=== PATIENT | male | born 1985 | race Caucasian/White ===

== ENCOUNTER 2019-11-13 10:09 | Emergency (ER) | payer SELFPAY ==
[2019-11-13 10:16] VITALS: BP 125/80
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
== END 2019-11-13 11:37 | disposition home or self-care (01) ==
LOC: ER 10:09
DX: L02.416 Cutaneous abscess of left lower limb (principal); M79.605 Pain in left leg; F17.200 Nicotine dependence, unspecified, uncomplicated
CPT/HCPCS: 99283

== ENCOUNTER 2020-02-17 03:21 | Inpatient (IN) | payer SELFPAY ==
[~2020-02-17 03:21] MED LIST: NALOXONE HCL INJ/PF 0.4 MG/1 ML SDV ONE
[2020-02-17] MEDS: NALOXONE HCL INJ/PF 0.4 MG/1 ML SDV IV ONE ×4 (03:22→05:56)
[2020-02-17] MEDS ORDERED: NALOXONE HCL INJ 2 MG/2 ML DISP.SYRIN ONE (03:23)
[2020-02-17] MEDS ORDERED: LORAZEPAM INJ 2 MG/1 ML VIAL IV ONE ×2 (03:35→14:36)
[2020-02-17] MEDS ORDERED: ETOMIDATE INJ/PF 20 MG/10 ML SDV IV ONE ×2 (03:39→10:10)
[2020-02-17] MEDS ORDERED: VECURONIUM BROMIDE INJ 10 MG VIAL IV ONE ×5 (03:41→10:10)
[2020-02-17] MEDS ORDERED: SUCCINYLCHOLINE CHLORIDE INJ 200 MG/10 ML VIAL IV ONE (03:41)
--- NOTE | 2020-02-17 04:00 | ER Document Report ---
ED General - General Chief Complaint: Possible Overdose Stated Complaint: POSSIBLE OVERDOSE - HPI Onset: Other - Unknown Onset/Duration: Constant Quality of pain: Other Context: This is a 34-year-old male presenting from the front lobby on a stretcher for evaluation of altered mental status. ED staff states that the patient's friends brought him up to the front door the ER and had him packed in several bags of ice. Details as to the exact sequence of events is unclear at this point but the patient was reportedly found down by his friends in front of a convenience store and a brought him to the ER. The patient has presenting with a initial GCS of 3. Patient's eyes are closed, he is nonverbal and does not localize to pain. The patient's breathing has extremely slow, basically agonal at times. Patient's pupils are pinpoint bilaterally initial oxygen saturation was noted to get as low as 42%. And patient had minimal response to 4 mg of Narcan. Pt's initial temperature according to temalcides Col[place] was 90.4 Associated symptoms: Other - None none Exacerbated by: Other - Unknown Relieved by: Other - None - Related Data Allergies/Adverse Reactions: No Known Allergies Allergy (Verified 11/13/19 11:16) Past Medical History - General Information source: Friend - The patient's reported friends who brought him in initially mentioned nothing about any prior medical history Cannot obtain history due to: Altered mental status - Social History Smoking Status: Unknown if Ever Smoked Frequency of alcohol use: Unknown Drug Abuse: Other - None none Family History: Other - Unknown at this time Past Surgical History: Reports: Other - Neck surgery Review of Systems - Review of Systems -: Yes ROS unobtainable due to patient's medical condition Physical Exam - Vital signs Vitals: Resp Pulse Ox 14 41 L 02/17/20 03:20 02/17/20 03:20 - Notes Notes: CONSTITUTIONAL [Vital signs reviewed, patient has a GCS of 3, has erratic breathing and is unresponsive to painful stimuli HEAD [Atraumatic, Normocephalic.] EYES Pupils are pinpoint bilaterally sclera are normal, Conjunctiva are normal.] ENT [External ears normal to inspection, Nose examination normal, lips appear slightly cyanotic] NECK No step-off or crepitus noted on exam of posterior neck no jugular venous distention, No meningeal signs, ] RESPIRATORY CHEST [Chest is nontender, breathing is slow and irregular, scattered rhonchi audible, patient appears to be in severe respiratory distress CARDIOVASCULAR [RRR, No murmurs, Normal S1 S2, No rub, No gallop.] ABDOMEN [Abdomen is nontender, No pulsatile masses, No other masses, Bowel sounds quiet, No distension, No peritoneal signs, No hernias.] UPPER EXTREMITY No deformities or cyanosis noted LOWER EXTREMITY No deformities or cyanosis noted NEURO GCS of 3. Patient's eyes are closed. Patient is nonverbal and does not respond to painful stimuli SKIN Patient has a overall great pallor in terms of the appearance of his skin. Patient does have a oval appearing area of macular erythema surrounding the region of the umbilicus. PSYCHIATRIC [Unable to assess patient from a psychiatric standpoint. ] Course - Re-evaluation Re-evalutation: 02/17/20 05:32 Patient is currently sedated. He continues to have a tachycardic rate that varies from the low 100s to the 160s. Patient's blood pressure is 153/106. O2 sats are 99% - Vital Signs Vital signs: Temp Pulse Resp BP Pulse Ox 93.6 F L 9 L 146/91 H 96 02/17/20 05:41 02/17/20 05:01 02/17/20 05:41 02/17/20 05:20 - Laboratory Result Diagrams: 02/17/20 03:40 02/17/20 03:40 Laboratory results interpreted by me: 02/17/20 02/17/20 02/17/20 03:29 03:40 03:40 WBC 13.1 H Baso % (Auto) 2.5 H Absolute Basos (auto) 0.3 H Potassium 3.4 L Creatinine 1.26 H Glucose 364 H POC Glucose 402 H* Creatine Kinase 52 L Urine Protein Urine Glucose (UA) Salicylates < 1.0 L Acetaminophen < 10 L 02/17/20 03:40 WBC Baso % (Auto) Absolute Basos (auto) Potassium Creatinine Glucose POC Glucose Creatine Kinase Urine Protein 30 H Urine Glucose (UA) 150 H Salicylates Acetaminophen - Diagnostic Test Radiology reviewed: Reports reviewed - EKG Interpretation by Me Additional EKG results interpreted by me: 02/17/20 05:21 EKG obtained on 02/17/2020 at 0434 hrs. was interpreted by this MD. Findings tachycardia with some irregularity that is suggestive of A. fib. P waves cannot be clearly seen preceding QRS complexes. Normal axis there are no obvious patterns of ST segment elevation or depression present to suggest acute myocardial ischemia or infarction. There is no prior EKG available for comparison. QTC is 509. Impression: Irregular tachydysrhythmia with nonspecifi c ST segments EKG obtained on 02/17/2020 at 0506 hrs. was interpreted by this MD. Findings: Patient still has a irregular tachycardia dysrhythmia is difficult safe find consistent P waves. Rate is 108 QRS complex appears narrow QTC is 456. There are no obvious patterns of ST segment elevation or depression present to suggest acute myocardial ischemia or infarction. When compared to prior EKG from 02/17/2020 at 0434 hrs. rate has slowed but rhythm is still maintained the morphology of a tachydysrhythmia. - Consults Luis Kim NP Time consulted: 05:38 Reason for consultation: 02/17/20 05:46 Intubated, unresponsive, hypothermic patient with cardiac tachydysrhythmias Procedures - Intubation Orotracheal Time of Intubation: 03:33 Airway evaluation: Large tongue, Obese Mallampati Classification: Class 4 Medications: Etomidate, Succinylcholine Intubation method: Orotracheal Blade type: [place] Blade size: 4 Equipment used: Glidescope ETT size: 8.0 ETT secured at: Lips ETT secured at (cm): 25 Breath Sounds after Intubation: Equal End tidal CO2 confirmed: Yes Ventilator settings: SIMV Tidal volume: 500 FiO2: 100 Respirations: 12 PEEP: 5 Post Intubation Xray: Yes Intubation Complications: No complications - Additional Procedures IV insertion Time performed: 03:55 Additional Procedures: IV insertion Notes: 02/17/20 04:24 18-gauge left EJ was placed by this physician using sterile technique. Critical Care Note - Critical Care Note Total time excluding time spent on procedures (mins): 120 - Management of critically ill, hypothermic, unresponsive, hypoxic patient with tachydysrhythmia Discharge - Discharge Clinical Impression: Unresponsive state, Polysubstance abuse Hypothermia Qualifiers: Encounter type: initial encounter Qualified Code(s): T68.XXXA - Hypothermia, initial encounter Cardiac dysrhythmia, unspecified Qualifiers: Arrhythmia type: unspecified cardiac arrhythmia Qualified Code(s): I49.9 - Cardiac arrhythmia, unspecified Condition: Critical Disposition: ADMITTED INPATIENT Admitting Provider: Juan (Application Security Specialist) Unit Admitted: ICU
[2020-02-17 04:02] LABS: ABSOLUTE BASOPHILS # (AUTO) 0.3 10^3/uL (0.0-0.2); ABSOLUTE EOSINOPHILS # (AUTO) 0.3 10^3/uL (0.0-0.6); ABSOLUTE LYMPHOCYTES (AUTO) 4.2 10^3/uL (0.5-4.7); ABSOLUTE MONOCYTES (AUTO) 0.5 10^3/uL (0.1-1.4); ABSOLUTE NEUT (AUTO) 7.8 10^3/uL (1.7-8.2); BASOPHILS % (AUTO) 2.5 % (0-2); HEMATOCRIT 50.8 % (37.9-51.0); MEAN CORPUSCULAR HEMOGLOBIN 31.9 pg (27.0-33.4); MEAN CORPUSCULAR HGB CONC 33.4 g/dL (32.0-36.0); MEAN CORPUSCULAR VOLUME 95 fl (80-97); PLATELET COUNT 236 10^3/uL (150-450); RED BLOOD COUNT 5.33 10^6/uL (4.35-5.55); RED CELL DISTRIBUTION WIDTH 13.1 % (11.5-14.0); SEGMENTED NEUTROPHILS % (AUTO) 59.5 % (42-78); TOTAL CELLS COUNTED % (AUTO) 100 %; WHITE BLOOD COUNT 13.1 10^3/uL (4.0-10.5)
[2020-02-17] MEDS ORDERED: MIDAZOLAM HCL 50 MG/100 ML RTUINJ IV PRN (04:19)
[2020-02-17 04:28] LABS: APPEARANCE,URINE SLIGHTLY-CLOUDY; BILIRUBIN,URINE NEGATIVE (NEGATIVE); COLOR,URINE YELLOW; GLUCOSE, URINE 150 mg/dL (NEGATIVE); KETONES,URINE NEGATIVE (NEGATIVE); LEUKOCYTE ESTERASE,URINE NEGATIVE (NEGATIVE); NITRITE,URINE NEGATIVE (NEGATIVE); PROTEIN,URINE 30 mg/dL (NEGATIVE); URINE SPECIFIC GRAVITY 1.021; UROBILINOGEN,URINE NEGATIVE mg/dL (<2.0)
--- NOTE | 2020-02-17 04:31 | RADIOLOGY REPORT (SQ) ---
EXAM DESCRIPTION: XR CHEST 1 VIEW COMPLETED DATE/TME: 02/17/2020 03:53 CLINICAL HISTORY: 34 years, Male, respiratory arrest COMPARISON: None. NUMBER OF VIEWS: One TECHNIQUE: AP view the chest LIMITATIONS: None. FINDINGS: There is a right upper lobe consolidation. Left lung is clear. Heart is normal in size. No pneumothorax or pleural effusion. Endotracheal tube terminates 7 cm above the zeus. Nasogastric tube is in satisfactory position terminating within the stomach. IMPRESSION: Right upper lobe pneumonia. Satisfactory positioning of the endotracheal and nasogastric tubes. copyright 2010 [employer]- All Rights Reserved
[2020-02-17 04:33] LABS: INTERNATIONAL RATION (INR) 0.98; PROTHROMBIN TIME 13.2 SEC (11.4-15.4)
[2020-02-17 04:34] LABS: ALBUMIN 4.7 g/dL (3.5-5.0); ALKALINE PHOSPHATASE 93 U/L (38-126); ANION GAP 15 (5-19); ASPARTATE AMINO TRANSFERASE 44 U/L (17-59); BILIRUBIN,DIRECT 0.3 mg/dL (0.0-0.4); BILIRUBIN,TOTAL 0.7 mg/dL (0.2-1.3); BLOOD UREA NITROGEN 16 mg/dL (7-20); CALCIUM 8.9 mg/dL (8.4-10.2); CARBON DIOXIDE 25 mmol/L (22-30); CHLORIDE 100 mmol/L (98-107); CREATINE KINASE 52 U/L (55-170); GLUCOSE 364 mg/dL (75-110); POTASSIUM 3.4 mmol/L (3.6-5.0); TOTAL PROTEIN 7.8 g/dL (6.3-8.2)
[2020-02-17 04:36] LABS: ACETAMINOPHEN < 10 ug/mL (10-30); ALCOHOL < 10 mg/dL (NONE DETECTED); SALICYLATE < 1.0 mg/dL (2.0-20.0)
[2020-02-17] MEDS ORDERED: DIAZEPAM INJ 10 MG/2 ML DISP.SYRIN IV ONE ×2 (04:43→06:04)
[2020-02-17] MEDS ORDERED: NORMAL SALINE 1000 ML 1,000 ML IV ONE (04:44)
[2020-02-17] MEDS ORDERED: PIPERACILLIN/TAZOBACTAM 3.375 GM VIAL IV ONE (04:48)
[2020-02-17 05:01] LABS: URINE AMPHETAMINES SCREEN NEGATIVE; URINE BARBITURATES SCREEN NEGATIVE; URINE BENZODIAZEPINES SCREEN NEGATIVE; URINE METHADONE SCREEN NEGATIVE; URINE PHENCYCLIDINE SCREEN NEGATIVE
[2020-02-17 05:03] LABS: URINE COCAINE SCREEN UNCONFIRMED POSITIVE; URINE MARIJUANA (THC) SCREEN UNCONFIRMED POSITIVE
[2020-02-17] MEDS ORDERED: NALOXONE HCL INJ 2 MG/2 ML DISP.SYRIN IV ONE ×2 (05:48→05:49)
[2020-02-17 05:56] LABS: ARTERIAL BLOOD BASE EXCESS -6.7 mmol/L; ARTERIAL BLOOD FIO2 100%; ARTERIAL BLOOD H2CO3 2.21 mmol/L (1.05-1.35); ARTERIAL BLOOD HCO3 24.7 mmol/L (20-24); ARTERIAL BLOOD O2 SATURATION 92.2 % (94-98); ARTERIAL BLOOD PO2 82.3 mmHg (80-100); ARTERIAL BLOOD TOTAL CO2 26.9 mmol/L (23-27)
[2020-02-17 05:59] LABS: ARTERIAL BLOOD PCO2 73.4 mmHg (35-45); ARTERIAL BLOOD PH 7.14 (7.35-7.45)
[2020-02-17] MEDS ORDERED: NORMAL SALINE 100 ML with VECURONIUM BROMIDE 10 MG IV PRN ×2 (06:12)
[2020-02-17] MEDS ORDERED: PROPOFOL 1,000 MG/100 ML INFUS..BTL IV PRN (06:23)
--- NOTE | 2020-02-17 06:41 | CRITICAL CARE ADMISSION REPORT ---
HPI Date:: 02/17/20 Time:: 06:24 Reason for ICU Reason:: Possible Drug OD Admission Date/Time & PCP: Admission Date/Time: 02/17/20 05:54 Primary Care Provider: HPI: Manoj Madrid is a 34-year-old male, unknown past medical history presented to the ED via friends of vehicle. Apparently he was found down outside a [employer] [place] by his friends, who packed him in bags of ice and transported him to the ED. Upon arrival he was agonal breathing with an O2 saturation in the 40s, tachycardic, and hypertensive. He was subsequently intubated. His initial temp was 90 F. He was placed on a Marianne hugger. Drug screen was positive for cocaine and marijuana. Troponin was negative at 0.012 initial EKG showed A. fib RVR rate of 168, prolonged QTC 509. Blood gas immediately post intubation pH 7.14 PCO2 73.4 PO2 82.3 HCO3 24.7. His pupils were pinpoint, he was given 3 doses of Narcan with no response. Given the clinical picture this is most likely cocaine toxicity. He is admitted to the ICU for further briana gement. - Diagnosis/Plan (1) Cardiac dysrhythmia, unspecified Qualifiers: Arrhythmia type: unspecified cardiac arrhythmia Qualified Code(s): I49.9 - Cardiac arrhythmia, unspecified Is this a current diagnosis for this admission?: Yes Plan: EKG A. fib RVR rate of 168 unknown if this is new Prolonged QTC Given the clinical picture and positive cocaine on the drug screen this is most likely cocaine toxicity We will get echo If remains tachycardic and hypertensive would use labetalol as this is both alpha and beta (2) Hypothermia Qualifiers: Encounter type: initial encounter Qualified Code(s): T68.XXXA - Hypothermia, initial encounter Is this a current diagnosis for this admission?: Yes Plan: On arrival to the ED the patient was packed in ice temp was 90 F Continue Marianne hugger. (3) Polysubstance abuse Is this a current diagnosis for this admission?: Yes Plan: Unknown substance abuse history but did have positive drug screen of cocaine and marijuana. Benefit from drug rehab after discharge Past Medical History Medical History: Other - Unknown Past Surgical History Past Surgical History: Reports: Other - Neck surgery Social/Family History - Social History Smoking Status: Unknown if Ever Smoked Hx Recreational Drug Use: Yes - Medication/Allergies Home Medications: Cephalexin Monohydrate [Keflex 500 mg Capsule] 500 mg PO Q6H 5 Days #20 capsule 11/13/19 Naproxen [Naprosyn 250 Nmg Tablet] 1 tab PO BID #14 tablet 11/13/19 Sulfamethoxazole/Trimethoprim [Bactrim Ds Tablet] 1 each PO BID #20 tablet 11/13/19 Allergies/Adverse Reactions: No Known Allergies Allergy (Verified 11/13/19 11:16) Review of Systems ROS unobtainable: Due to endotracheal tube, Due to mental status Physical Exam Vital Signs: Temp Pulse Resp BP Pulse Ox 94.0 F L 9 L 158/105 H 96 02/17/20 05:56 02/17/20 05:01 02/17/20 05:56 02/17/20 05:20 Intake & Output 02/15/20 02/16/20 02/17/20 06:59 06:59 06:59 Intake Total 8 Balance 8 Weight 114.9 kg Weight/Height Weight 114.9 kg General appearance: PRESENT: well-nourished Head exam: PRESENT: atraumatic, normocephalic Eye exam: PRESENT: PERRLA Mouth exam: PRESENT: moist, neck supple Neck exam: PRESENT: full ROM Respiratory exam: PRESENT: decreased breath sounds Cardiovascular exam: PRESENT: irregular rhythm, tachycardia Pulses: PRESENT: normal carotid pulses, normal radial pulses GI/Abdominal exam: PRESENT: normal bowel sounds Extremities exam: PRESENT: full ROM Musculoskeletal exam: PRESENT: full ROM Neurological exam: PRESENT: other - Sedated Tubes/Lines: PRESENT: Endotracheal Tube Laboratory/Radiographs Laboratory Results: 02/17/20 03:40 02/17/20 03:40 02/17/20 02/17/20 02/17/20 03:33 03:40 03:40 WBC 13.1 H RBC 5.33 Hgb 17.0 Hct 50.8 MCV 95 MCH 31.9 MCHC 33.4 RDW 13.1 Plt Count 236 Seg Neutrophils % 59.5 Carbonic Acid Cancelled HCO3/H2CO3 Ratio Cancelled ABG pH Cancelled ABG pCO2 Cancelled ABG pO2 Cancelled ABG HCO3 Cancelled ABG O2 Saturation Cancelled ABG Base Excess Cancelled FiO2 Cancelled Sodium 140.1 Potassium 3.4 L Chloride 100 Carbon Dioxide 25 Anion Gap 15 BUN 16 Creatinine 1.26 H Est GFR ( Amer) > 60 Glucose 364 H Calcium 8.9 Total Bilirubin 0.7 AST 44 Alkaline Phosphatase 93 Total Protein 7.8 Albumin 4.7 Urine Color Urine Appearance Urine pH Ur Specific [place] Urine Protein Urine Glucose (UA) Urine Ketones Urine Blood Urine Nitrite Ur Leukocyte Esterase Urine WBC (Auto) Urine RBC (Auto) 02/17/20 02/17/20 03:40 05:00 WBC RBC Hgb Hct MCV MCH MCHC RDW Plt Count Seg Neutrophils % Carbonic Acid 2.21 H HCO3/H2CO3 Ratio 11:1 ABG pH 7.14 L* ABG pCO2 73.4 H* ABG pO2 82.3 ABG HCO3 24.7 H ABG O2 Saturation 92.2 L ABG Base Excess -6.7 FiO2 100% Sodium Potassium Chloride Carbon Dioxide Anion Gap BUN Creatinine Est GFR ( Amer) Glucose Calcium Total Bilirubin AST Alkaline Phosphatase Total Protein Albumin Urine Color YELLOW Urine Appearance SLIGHTLY-CLOUDY Urine pH 6.0 Ur Specific [place] 1.021 Urine Protein 30 H Urine Glucose (UA) 150 H Urine Ketones NEGATIVE Urine Blood NEGATIVE Urine Nitrite NEGATIVE Ur Leukocyte Esterase NEGATIVE Urine WBC (Auto) 3 Urine RBC (Auto) 1 02/17/20 02/17/20 03:40 03:40 Creatine Kinase 52 L Troponin I < 0.012 Impressions: Chest X-Ray 02/17/20 03:38 IMPRESSION: Right upper lobe pneumonia. Satisfactory positioning of the endotracheal and nasogastric tubes. copyright 2010 [employer]- All Rights Reserved All labs, radiographs, diagnostic studies and EKGs were personally reviewed: Yes In addition, reports of radiographic and diagnostic studies were read: Yes Critical Time Critical Time (minutes): 70 -: The care of a critically ill patient is dynamic. This note represents a static moment in the admission process. Orders and treatments may be given simultaneously and urgently, and time is not branch customer service representative of the treatment process. This patient requires Critical Care secondary to life threatening organ or limb dysfunction. Without Critical Care services, the patient is at risk for increased mortality and morbidity.
[2020-02-17] MEDS ORDERED: DILTIAZEM HCL INJ 25 MG/5 ML VIAL ONE (07:34)
[2020-02-17] MEDS ORDERED: DILTIAZEM HCL INJ 25 MG/5 ML VIAL IV ONE (07:35)
[2020-02-17] MEDS ORDERED: MIDAZOLAM 2 MG/2 ML INJ IV ONE (07:38)
[2020-02-17] MEDS: DEXMEDETOMIDINE IN 0.9 % NACL 400 MCG/100 ML RTUPB IV PRN ×3 (08:13→19:41)
[2020-02-17] MEDS: DEXMEDETOMIDINE IN 0.9 % NACL 400 MCG/100 ML RTUPB IV ONE ×2 (08:15→16:12)
[2020-02-17 08:40] LABS: FREE T3 4.72 pg/mL (2.77-5.27); FREE T4 (FREE THYROXINE) 1.06 ng/dL (0.78-2.19)
--- NOTE | 2020-02-17 08:52 | RADIOLOGY REPORT (SQ) ---
EXAM DESCRIPTION: CT HEAD WITHOUT IMAGES COMPLETED DATE/TIME: 02/17/2020 8:07 am REASON FOR STUDY: unresponsive COMPARISON: None. TECHNIQUE: Axial images acquired through the brain without intravenous contrast. Images reviewed wi th bone, brain and subdural windows. Additional sagittal and coronal reconstructions were generated. Images stored on PACS. All CT scanners at this facility use dose modulation, iterative reconstruction, and/or weight based d osing when appropriate to reduce radiation dose to as low as reasonably achievable (ALARA). [facility]: Dose Right [facility]: CareDose [facility]: Dose Right [facility]: Teradose 4D [facility]: [employer] Snack Attack RADIATION DOSE: CT Rad equipment meets quality standard of care and radiation dose reduction techniq ues were employed. CTDIvol: 53.2 mGy. DLP: 1097 mGy-cm.. LIMITATIONS: None. FINDINGS: VENTRICLES: Normal size and contour. The cisterns are patent. CEREBRUM: No masses. No hemorrhage. No midline shift. No evidence for acute infarction. Normal gra y/white matter differentiation. No areas of low density in the white matter. CEREBELLUM: No masses. No hemorrhage. No alteration of density. No evidence for acute infarction. EXTRAAXIAL SPACES: No fluid collections. No masses. ORBITS AND GLOBE: No intra- or extraconal masses. Normal contour of globe without masses. CALVARIUM: No fracture. PARANASAL SINUSES: Left maxillary and sphenoid sinus mucous retention cysts or polyps. An air-fluid level and mild mucoperiosteal thickening in the right maxillary sinus. Mild mucoperiosteal thickeni ng in the right ethmoid sinus. The frontal sinuses are expansive, normal anatomic variant. SOFT TISSUES: No mass or hematoma. OTHER: Partially visualized endotracheal tube. 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 IMPRESSION: 1. No acute intracranial abnormality. 2. Chronic maxillary, ethmoid and sphenoid sinus disease. An air-fluid level in the right maxillary sinus suggest superimposed acute changes. 3. Additional findings as above. EVIDENCE OF ACUTE STROKE: NO COMMENT: Quality ID # [id number]: Final reports with documentation of one or more dose reduction techniques (e.g., Automated exposure control, adjustment of the mA and/or kV according to patient size, use of iterative reconstruction technique) TECHNICAL DOCUMENTATION: JOB ID: [id number] [email or web address]- All Rights Reserved Reading location - IP/workstation name: [email or web address]
--- NOTE | 2020-02-17 10:01 | EKG REPORT ---
SEVERITY:- ABNORMAL ECG - ATRIAL FIBRILLATION, V-RATE 79-149 : Confirmed by: Misha Jones MD 17-Feb-2020 10:00:23
--- NOTE | 2020-02-17 10:01 | EKG REPORT ---
SEVERITY:- ABNORMAL ECG - ATRIAL FIBRILLATION CONSIDER POSTERIOR INFARCT REPOL ABNRM SUGGESTS ISCHEMIA, DIFFUSE LEADS PROLONGED QT INTERVAL : Confirmed by: Misha Jones MD 17-Feb-2020 10:00:27
--- NOTE | 2020-02-17 10:01 | EKG REPORT ---
SEVERITY:- ABNORMAL ECG - ATRIAL FIBRILLATION CONSIDER ANTEROSEPTAL INFARCT MINIMAL ST DEPRESSION, INFERIOR LEADS PROLONGED QT INTERVAL : Confirmed by: Misha Jones MD 17-Feb-2020 10:00:48
--- NOTE | 2020-02-17 10:03 | EKG REPORT ---
SEVERITY:- ABNORMAL ECG - ATRIAL FIBRILLATION ST ELEV, PROBABLE NORMAL EARLY REPOL PATTERN : Confirmed by: Misha Jones MD 17-Feb-2020 10:03:05
[2020-02-17] MEDS ORDERED: SUCCINYLCHOLINE CHLORIDE INJ 200 MG/10 ML VIAL ONE (10:10)
[2020-02-17] MEDS: MIDAZOLAM HCL 50 MG/100 ML RTUINJ IV PRN ×4 (10:47→21:22)
[2020-02-17] MEDS ORDERED: DEXMEDETOMIDINE IN 0.9 % NACL 400 MCG/100 ML RTUPB IV ONE (13:26)
[2020-02-17] MEDS ORDERED: LORAZEPAM INJ 2 MG/1 ML VIAL ONE (13:37)
[2020-02-17] MEDS ORDERED: NORMAL SALINE 1000 ML 1,000 ML IV PRN (14:36)
[2020-02-17 14:37] LABS: ARTERIAL BLOOD BASE EXCESS -2.7 mmol/L; ARTERIAL BLOOD H2CO3 1.19 mmol/L (1.05-1.35); ARTERIAL BLOOD HCO3 22.3 mmol/L (20-24); ARTERIAL BLOOD O2 SATURATION 91.3 % (94-98); ARTERIAL BLOOD PCO2 39.5 mmHg (35-45); ARTERIAL BLOOD PH 7.37 (7.35-7.45); ARTERIAL BLOOD PO2 62.2 mmHg (80-100); ARTERIAL BLOOD TOTAL CO2 23.5 mmol/L (23-27)
[2020-02-17 14:43] LABS: ARTERIAL BLOOD FIO2 30%
[2020-02-17] MEDS ORDERED: FENTANYL CITRATE INJ/PF 100 MCG/2 ML AMPUL ONE (15:38)
[2020-02-17 15:50] LABS: ALBUMIN 3.8 g/dL (3.5-5.0); ALKALINE PHOSPHATASE 75 U/L (38-126); ANION GAP 6 (5-19); ASPARTATE AMINO TRANSFERASE 37 U/L (17-59); BILIRUBIN,DIRECT 0.1 mg/dL (0.0-0.4); BLOOD UREA NITROGEN 22 mg/dL (7-20); CALCIUM 8.7 mg/dL (8.4-10.2); CARBON DIOXIDE 24 mmol/L (22-30); CHLORIDE 106 mmol/L (98-107); GLUCOSE 97 mg/dL (75-110); TOTAL PROTEIN 6.6 g/dL (6.3-8.2)
[2020-02-17 15:58] LABS: POTASSIUM 6.2 mmol/L (3.6-5.0)
[2020-02-17] MEDS ORDERED: FENTANYL CITRATE INJ/PF 100 MCG/2 ML AMPUL IV ONE (16:00)
[2020-02-17] MEDS: ENOXAPARIN SODIUM INJ 40 MG/0.4 ML DISP.SYRIN SUBCUT SCH (16:51)
[2020-02-17] MEDS: PIPERACILLIN SODIUM/TAZOBACTAM 4.5 GM in NORMAL SALINE 100 ML IV SCH ×2 (16:52→23:20)
[2020-02-17] MEDS ORDERED: SODIUM POLYSTYRENE SULFONATE 15 GM/60 ML NG ONE (16:57)
[2020-02-17] MEDS ORDERED: INSULIN REG, HUMAN 100 UNIT/ML 3 ML VIAL (PYX) IV ONE (16:58)
[2020-02-17] MEDS ORDERED: DEXTROSE 50%-WATER 25 GM/50 ML DISP.SYRIN IV ONE (16:58)
[2020-02-17] MEDS ORDERED: CALCIUM GLUC IN NACL, ISO-OSM 1 GM/50 ML RTUPB IV ONE (17:30)
[2020-02-17] MEDS: NORMAL SALINE 1000 ML 1,000 ML IV PRN (21:37)
[2020-02-17 22:58] LABS: URINE AMPHETAMINES SCREEN NEGATIVE; URINE BARBITURATES SCREEN NEGATIVE; URINE METHADONE SCREEN NEGATIVE; URINE PHENCYCLIDINE SCREEN NEGATIVE
[2020-02-17 23:11] LABS: URINE COCAINE SCREEN UNCONFIRMED POSITIVE
[2020-02-17 23:12] LABS: URINE BENZODIAZEPINES SCREEN UNCONFIRMED POSITIVE; URINE MARIJUANA (THC) SCREEN UNCONFIRMED POSITIVE
[2020-02-18] MEDS: DEXMEDETOMIDINE IN 0.9 % NACL 400 MCG/100 ML RTUPB IV PRN ×4 (00:42→15:13)
[2020-02-18] MEDS: MIDAZOLAM HCL 50 MG/100 ML RTUINJ IV PRN ×3 (02:33→14:14)
[2020-02-18] MEDS ORDERED: FENTANYL CITRATE INJ/PF 100 MCG/2 ML AMPUL ONE ×2 (03:22→18:50)
[2020-02-18] MEDS ORDERED: FENTANYL CITRATE INJ/PF 100 MCG/2 ML AMPUL IV ONE (03:24)
[2020-02-18 04:52] LABS: ARTERIAL BLOOD FIO2 30%; ARTERIAL BLOOD H2CO3 1.33 mmol/L (1.05-1.35); ARTERIAL BLOOD HCO3 22.9 mmol/L (20-24); ARTERIAL BLOOD O2 SATURATION 92.5 % (94-98); ARTERIAL BLOOD PCO2 44.3 mmHg (35-45); ARTERIAL BLOOD PH 7.33 (7.35-7.45); ARTERIAL BLOOD PO2 68.5 mmHg (80-100); ARTERIAL BLOOD TOTAL CO2 24.3 mmol/L (23-27)
[2020-02-18] MEDS: PIPERACILLIN SODIUM/TAZOBACTAM 4.5 GM in NORMAL SALINE 100 ML IV SCH ×4 (05:12→23:44)
[2020-02-18 07:02] LABS: ABSOLUTE BASOPHILS # (AUTO) 0.1 10^3/uL (0.0-0.2); ABSOLUTE LYMPHOCYTES (AUTO) 1.8 10^3/uL (0.5-4.7); ABSOLUTE NEUT (AUTO) 15.3 10^3/uL (1.7-8.2); BASOPHILS % (AUTO) 0.3 % (0-2); EOSINOPHILS % (AUTO) 0.1 % (0-6); HEMATOCRIT 40.1 % (37.9-51.0); LYMPHOCYTES % (AUTO) 9.6 % (13-45); MEAN CORPUSCULAR HEMOGLOBIN 32.1 pg (27.0-33.4); MEAN CORPUSCULAR HGB CONC 34.6 g/dL (32.0-36.0); MEAN CORPUSCULAR VOLUME 93 fl (80-97); MONOCYTES % (AUTO) 10.2 % (3-13); PLATELET COUNT 170 10^3/uL (150-450); RED BLOOD COUNT 4.32 10^6/uL (4.35-5.55); RED CELL DISTRIBUTION WIDTH 12.9 % (11.5-14.0); SEGMENTED NEUTROPHILS % (AUTO) 79.8 % (42-78); TOTAL CELLS COUNTED % (AUTO) 100 %; WHITE BLOOD COUNT 19.1 10^3/uL (4.0-10.5)
[2020-02-18 07:10] LABS: ALBUMIN 3.1 g/dL (3.5-5.0); ALKALINE PHOSPHATASE 67 U/L (38-126); ANION GAP 6 (5-19); ASPARTATE AMINO TRANSFERASE 44 U/L (17-59); BILIRUBIN,TOTAL 1.1 mg/dL (0.2-1.3); BLOOD UREA NITROGEN 25 mg/dL (7-20); CARBON DIOXIDE 24 mmol/L (22-30); CHLORIDE 109 mmol/L (98-107); GLUCOSE 118 mg/dL (75-110); HEMOGLOBIN 13.9 g/dL (13.5-17.0); PHOSPHORUS 2.2 mg/dL (2.5-4.5); TOTAL PROTEIN 5.6 g/dL (6.3-8.2)
[2020-02-18 07:34] LABS: POTASSIUM 4.5 mmol/L (3.6-5.0)
--- NOTE | 2020-02-18 08:15 | RADIOLOGY REPORT (SQ) ---
EXAM DESCRIPTION: CHEST SINGLE VIEW IMAGES COMPLETED DATE/TIME: 02/18/2020 6:21 am REASON FOR STUDY: intubated COMPARISON: 02/17/2020 EXAM PARAMETERS: NUMBER OF VIEWS: One view. TECHNIQUE: Single frontal radiographic view of the chest acquired. RADIATION DOSE: NA LIMITATIONS: None. FINDINGS: LUNGS AND PLEURA: Significant improved aeration with resolving right upper lobe consolida tion. Patchy focal areas of airspace disease are identified in the right lung. The left lung is sta ble in appearance. No pneumothorax or pleural effusion. MEDIASTINUM AND HILAR STRUCTURES: Stable. HEART AND VASCULAR STRUCTURES: Stable. BONES: No acute findings. SUPPORT DEVICES AND LINES: Support tubes and devices are unchanged. HARDWARE: None. OTHER: No other significant finding. IMPRESSION: 1. Since the prior study dated 02/17/2020, significant improvement and decreasing right upper lobe consolidation. 2. There are multifocal patchy areas of airspace disease in the remaining right lung. TECHNICAL DOCUMENTATION: JOB ID: [id number] 2010 [email or web address]- All Rights Reserved Reading location - IP/workstation name: [email or web address]
[2020-02-18] MEDS: NORMAL SALINE 1000 ML 1,000 ML IV PRN ×2 (08:23→17:46)
[2020-02-18] MEDS ORDERED: VANCOMYCIN HCL 0 MG in DEXTROSE 5%-WATER 250 ML IV NR (08:45)
[2020-02-18] MEDS: ENOXAPARIN SODIUM INJ 40 MG/0.4 ML DISP.SYRIN SUBCUT SCH (10:27)
[2020-02-18] MEDS: LEVOFLOXACIN 750 MG/D5W RTU 750 MG/150 ML RTUPB IV SCH (10:27)
--- NOTE | 2020-02-18 15:34 | CDI QUERY ---
CDI Query CDI Review: Documentation in the medical record indicates that this patient has been admitted with or diagnosed as having: Per ED Notes: The patient's breathing has extremely slow, basically agonal at times. Patient's pupils are pinpoint bilaterally initial oxygen saturation was noted to get as low as 42%. CONSTITUTIONAL Vital signs reviewed, patient has a GCS of 3, has erratic breathing and is unresponsive to painful stimuli RESPIRATORY CHEST Chest is nontender, breathing is slow and irregular, scattered rhonchi audible, patient appears to be in severe respiratory distress - Intubation Orotracheal Time of Intubation: 03:33 Airway evaluation: Large tongue, Obese Mallampati Classification: Class 4 Medications: Etomidate, Succinylcholine Intubation method: Orotracheal Per H&P: Upon arrival he was agonal breathing with an O2 saturation in the 40s, tachycardic, and hypertensive. He was subsequently intubated Based on your medical judgment, can you further clarify the diagnosis related to these findings in the progress notes such as: Acute Respiratory Failure Acute on Chronic Respiratory Failure Other cause (please specify) None of the above / Not applicable Thank you for your consideration. TONY GuerreroN RN Clinical Cvor Nurse Physician Advisor [email or web address]
[2020-02-18] MEDS: VANCOMYCIN HCL 1,250 MG in DEXTROSE 5%-WATER 250 ML IV SCH ×2 (16:07→21:27)
[2020-02-18 17:05] LABS: AMORPHOUS SEDIMENT,URINE TRACE /HPF; APPEARANCE,URINE TURBID; BILIRUBIN,URINE NEGATIVE (NEGATIVE); COLOR,URINE YELLOW; GLUCOSE, URINE NEGATIVE (NEGATIVE); KETONES,URINE 20 mg/dL (NEGATIVE); LEUKOCYTE ESTERASE,URINE NEGATIVE (NEGATIVE); NITRITE,URINE NEGATIVE (NEGATIVE); PROTEIN,URINE 30 mg/dL (NEGATIVE); URINE SPECIFIC GRAVITY 1.029; UROBILINOGEN,URINE NEGATIVE mg/dL (<2.0)
[2020-02-18] MEDS: FENTANYL CITRATE INJ/PF 100 MCG/2 ML AMPUL IV PRN ×2 (18:50→21:57)
[2020-02-18] MEDS ORDERED: HALOPERIDOL LACTATE INJ 5 MG/1 ML VIAL IV ONE (19:30)
[2020-02-18] MEDS ORDERED: LORAZEPAM INJ 2 MG/1 ML VIAL IV ONE (19:30)
[2020-02-18] MEDS ORDERED: FENTANYL CITRATE INJ/PF 100 MCG/2 ML AMPUL IV PRN (19:48)
[2020-02-18] MEDS: ACETAMINOPHEN SOLN 325 MG/10.15 ML UDCUP NG PRN (19:49)
[2020-02-18] MEDS ORDERED: DIPHENHYDRAMINE HCL 50 MG/ML VIAL IV PRN (20:19)
--- NOTE | 2020-02-18 20:39 | PDOC CRITICAL CARE PROG REPORT ---
General Date:: 02/18/20 ICU Day:: 2 Ventilator Day:: 2 Hospital Day:: 2 Resuscitation Status: Full Code Events in the past 12 to 24 Hours:: This 34-year-old male was admitted to [facility] on 02/16 after having been brought in by private vehicle to the emergency department. He was unresponsive on arrival. He was hypertensive and tachycardic. He was reportedly febrile, and his friends apparently purchased ice from a convenient store and packed him in it for transport to the emergency department, resulting in exposure hypothermia. While they were apparently present at the time the patient lost consciousness, they were not forthcoming with details, only raising suspicion for the possibility of drug abuse/overdose. Drug screen was positive for cocaine and marijuana. In the interim, many theories and allegations have arisen from various sources (friends, family members). In the emergency department department, in addition to the findings above, the patient was noted to have pinpoint pupils. The patient was intubated for airway protection. He was admitted to the ICU for stabilization. 02/17: In the interim, the staff have been bombarded by multiple phone calls from several family members. Complicated family dynamic. His parents are . The patient apparently lives with his mother (Nidia Nguyễn), who claims to know nothing about the patient's drug abuse behaviors or history. Of note, each time she calls, she seems to indicate incremental amounts of increased awareness and suspicion about his behavior. In addition, allegations of been made that the patient routinely receives a "quarter" of his mother's narcotic prescriptions each month. The patient's father (Pravin) is in contact with the son; however, the patient's father lives in [place], [place]. The patient also has 2 biological sisters (Ondina, to Junior; Mena is estranged from the family). Has a half-brother, "Mark who is a known heroin addict". The patient's father reports that he believes the patient has been incarcerated 3 or 4 times. He believes that one case certainly involved illicit drugs. He also adds that at least one case involved violent behavior and warns the staff that the patient has a "bad temper". He also indicates that the patient is believed to have been under psychiatric care during at least 1 incarceration; however, details are lacking at this time. Clinically, the patient remains intubated. He has been requiring significant Versed infusions along with Precedex and fentanyl to achieve adequate sedation. ABG this a.m. 7.33/44/69 on FiO2 30%. Copious lowery/brown secretions emanate from the ET tube circuit. Chest x-ray this morning shows interval improvement in aeration of the right upper lobe infiltrate noted on previous imaging on 02/17/2020. Patient was initiated empirically on Zosyn for aspiration pneumonia. Tracheal aspirate obtained yesterday at the bedside appears to, indeed, be polymicrobial with 3+ GPC in pairs, 2+ gram-negative coccobacilli, and 1+ gram-positive cocci in clusters. Review of systems relevant to events:: Neurologic: Toxic metabolic encephalopathy Respiratory: Right upper lobe pneumonia, endotracheal intubation Psychiatric: Drug abuse, possible depression, possible suicidality Reason for ICU Addmission:: Possible Drug OD - Medications: Medications reviewed and adjusted accordingly: Yes Sedation:: Versed/Precedex/fentanyl Physical Exam Vital Signs: Temp Pulse Resp BP Pulse Ox 97.9 F 86 0 L 108/68 98 02/17/20 21:02 02/17/20 20:40 02/18/20 06:17 02/18/20 06:18 02/18/20 08:09 Intake & Output 02/17/20 02/18/20 02/19/20 06:59 06:59 06:59 Intake Total 1011 2766 100 Output Total 869 Balance 1011 1897 100 Weight 114.9 kg 114.8 kg Weight/Height Weight 114.8 kg Height 1.85 m General appearance: PRESENT: no acute distress, well-developed, well-nourished Head exam: PRESENT: atraumatic, normocephalic Eye exam: PRESENT: conjunctiva pink, EOMI, PERRLA. ABSENT: scleral icterus Mouth exam: PRESENT: moist, tongue midline Neck exam: ABSENT: carotid bruit, JVD, lymphadenopathy, thyromegaly Respiratory exam: PRESENT: rhonchi - Bilaterally. ABSENT: rales, wheezes Cardiovascular exam: PRESENT: RRR. ABSENT: diastolic murmur, rubs, systolic murmur Pulses: PRESENT: normal dorsalis pedis pul GI/Abdominal exam: PRESENT: normal bowel sounds, soft. ABSENT: distended, guarding, mass, organolmegaly, rebound, tenderness Gentrourinary exam: PRESENT: indwelling catheter Extremities exam: PRESENT: full ROM. ABSENT: calf tenderness, clubbing, pedal edema Musculoskeletal exam: PRESENT: normal inspection. ABSENT: deformity Neurological exam: PRESENT: altered Psychiatric exam: ABSENT: agitated, anxious Skin exam: PRESENT: dry, intact, warm, other - Covered in tattoos. ABSENT: cy anosis, rash Tubes/Lines: PRESENT: Endotracheal Tube, Nasogastic Tube Laboratory/Radiographs Laboratory Results: 02/18/20 05:58 02/18/20 05:58 02/17/20 02/17/20 02/17/20 03:40 13:36 14:26 WBC RBC Hgb Hct MCV MCH MCHC RDW Plt Count Seg Neutrophils % Carbonic Acid Cancelled 1.19 HCO3/H2CO3 Ratio Cancelled 18:1 ABG pH Cancelled 7.37 ABG pCO2 Cancelled 39.5 ABG pO2 Cancelled 62.2 L ABG HCO3 Cancelled 22.3 ABG O2 Saturation Cancelled 91.3 L ABG Base Excess Cancelled -2.7 FiO2 Cancelled 30% Sodium Potassium Chloride Carbon Dioxide Anion Gap BUN Creatinine Est GFR ( Amer) Est GFR (Non-Af Amer) Glucose Calcium Phosphorus Magnesium Total Bilirubin AST Alkaline Phosphatase Total Protein Albumin Free T4 1.06 Free T3 pg/mL 4.72 02/17/20 02/17/20 02/18/20 14:35 15:17 03:20 WBC RBC Hgb Hct MCV MCH MCHC RDW Plt Count Seg Neutrophils % Carbonic Acid 1.33 HCO3/H2CO3 Ratio 17:1 ABG pH 7.33 L ABG pCO2 44.3 ABG pO2 68.5 L ABG HCO3 22.9 ABG O2 Saturation 92.5 L ABG Base Excess -3.0 FiO2 30% Sodium Cancelled 136.2 L Potassium Cancelled 6.2 H* D Chloride Cancelled 106 Carbon Dioxide Cancelled 24 Anion Gap Cancelled 6 BUN Cancelled 22 H Creatinine Cancelled 1.42 H Est GFR ( Amer) Cancelled > 60 Est GFR (Non-Af Amer) Cancelled Glucose Cancelled 97 Calcium Cancelled 8.7 Phosphorus Magnesium Cancelled 1.6 Total Bilirubin Cancelled 1.0 AST Cancelled 37 Alkaline Phosphatase Cancelled 75 Total Protein Cancelled 6.6 Albumin Cancelled 3.8 Free T4 Free T3 pg/mL 12/02/20 12/02/20 05:58 05:58 WBC 19.1 H RBC 4.32 L Hgb 13.9 D Hct 40.1 MCV 93 MCH 32.1 MCHC 34.6 RDW 12.9 Plt Count 170 Seg Neutrophils % 79.8 H Carbonic Acid HCO3/H2CO3 Ratio ABG pH ABG pCO2 ABG pO2 ABG HCO3 ABG O2 Saturation ABG Base Excess FiO2 Sodium 138.5 Potassium 4.5 D Chloride 109 H Carbon Dioxide 24 Anion Gap 6 BUN 25 H Creatinine 1.05 Est GFR ( Amer) > 60 Est GFR (Non-Af Amer) Glucose 118 H Calcium 9.0 Phosphorus 2.2 L Magnesium 1.7 Total Bilirubin 1.1 AST 44 Alkaline Phosphatase 67 Total Protein 5.6 L Albumin 3.1 L Free T4 Free T3 pg/mL 02/17/20 02/17/20 03:40 03:40 Creatine Kinase 52 L Troponin I < 0.012 Impressions: Head CT 02/17/20 03:41 IMPRESSION: 1. No acute intracranial abnormality. 2. Chronic maxillary, ethmoid and sphenoid sinus disease. An air-fluid level in the right maxillary sinus suggest superimposed acute changes. 3. Additional findings as above. EVIDENCE OF ACUTE STROKE: NO Chest X-Ray 02/18/20 06:00 IMPRESSION: 1. Since the prior study dated 02/17/2020, significant improvement and decreasing right upper lobe consolidation. 2. There are multifocal patchy areas of airspace disease in the remaining right lung. All labs, radiographs, diagnostic studies and EKGs were personally reviewed: Yes In addition, reports of radiographic and diagnostic studies were read: Yes Assessment and Plan - Diagnosis (1) Endotracheally intubated Is this a current diagnosis for this admission?: Yes Plan: * I anticipate liberation from mechanical ventilatory support today. * I anticipate extubation while still on Precedex. Will discontinue Versed and fentanyl. (2) Drug overdose, multiple drugs Qualifiers: Encounter type: subsequent encounter Injury intent: undetermined intent Qualified Code(s): T50.914D - Poisoning by multiple unspecified drugs, medicaments and biological substances, undetermined, subsequent encounter Is this a current diagnosis for this admission?: Yes Plan: * Will need psychiatric evaluation after liberation from mechanical ventilatory support. * ADDENDUM (2004): The patient was successfully extubated earlier today. Medically, he is progressing rapidly; however, he has presented some psychiatric/behavioral obstacles that impeded ongoing care. He has demonstrated both verbally and physically intimidating and violent behavior, psychosis, bizarre ideation, incongruent thinking, perseveration and flight of ideas. Psychiatric consultation requested. Also, I did authorize use of Ativan and Haldol administration along with violent restraints. * I entered the room because the patient was hollering out that he "had to go smoke a cigarette". Although verbally crass, he did not initially behave or speak violently. In fact, he became frustrated with his physical inability (unrestrained) to get out of the bed, inability to straighten his gown (which he thought was a coat), and even politely asked for help "putting on [his] coat". He then proceeded to proclaim that he was a "killer, so you need to j ust let me go". "Once you do that, you can't be right", he states. Starts crying. Stops crying. He says that he can tell that the "other zahraa that lives inside him is trying to come out" and that it was only a matter of time. "I can't control him when he starts talking". Then, he starts crying, only to be back in an agitated mood a few seconds later. He does interject he "wanted" his mother "to see what happened". But, when asked if he wanted to talk to his mother on the phone to let her know that he had been extubated and regained consciousness, he scowls and states that "I will never see my mother again" (only to later request that the nurse call his mother to talk on the phone). He also reports that he had plans to go to live with his "uncle in [place]" who is a professional fisherman in [place]. The "uncle was going to help him get back on his feet", and he was supposed to be on a [employer] bus (sister bought him a ticket) "tomorrow"... when asked what date was on his ticket, he stated Dec 10. When he was informed that it is currently Dec 2, he repeated "tomorrow"... conversation continued for over 30 minutes. * Of note, the patient did offer some information that sheds some light on the possible reason for his current hospitalization. While he initially stated t hat he "did no drugs". Within a matter of a few minutes, he reported that the only drugs that he takes "pretty regularly" are Percocets, cocaine and marijuana. He states that he sometimes uses "meth". He also adds that he was "trying to do a 'Dirty 30'", which he explains is "30 mg of pure Percocet" but he suspects that what he "got must have had some fentanyl in it". * He denies taking any routine medications (although I have been led to believe that he has previously been under psychiatric care and may have been prescribed Seroquel). He denies taking any prescription medications... just P ercocets, cocaine and marijuana. (3) Pneumonia Qualifiers: Pneumonia type: due to unspecified organism Laterality: right Lung location: upper lobe of lung Qualified Code(s): J18.9 - Pneumonia, unspecified organism Is this a current diagnosis for this admission?: Yes Plan: * Trach aspirate culture pending. * On empiric Zosyn. * Based on Gram stain results, will add Levaquin and vancomycin to the empiric regimen, awaiting final results. (4) Atrial fibrillation with rapid ventricular response Is this a current diagnosis for this admission?: Yes Plan: * Paroxysmal. * Troponin was undetectable. * Now back in sinus rhythm. (5) Hypothermia due to exposure Is this a current diagnosis for this admission?: Yes (6) Cocaine abuse Is this a current diagnosis for this admission?: Yes (7) Marijuana abuse Is this a current diagnosis for this admission?: Yes (8) Toxic metabolic encephalopathy Is this a current diagnosis for this admission?: Yes Plan: * Clinically, improving. Critical Time Critical Time (minutes): 60 Level of Care: ICU -: 1. The care of a critical patient is a dynamic process. This note is a community health program representative synopsis but static in nature. The timeframe for treatments given in order is not necessarily the actual time these treatments may have been done. 2. This patient requires critical care secondary to ongoing requirements for therapy not offered or safe outside the critical care environment. Transfer to a lower level of care will result in altered life or limb morbidity and mortality. 3. Multidisciplinary rounds completed. 4. ABCDE bundle addressed.
[2020-02-18] MEDS: HALOPERIDOL LACTATE INJ 5 MG/1 ML VIAL IV PRN (21:27)
[2020-02-18] MEDS: LORAZEPAM INJ 2 MG/1 ML VIAL IV SCH (21:27)
--- NOTE | 2020-02-18 22:33 | RADIOLOGY REPORT (SQ) ---
Left shoulder x-ray two views on 02/18/2020 at 9:45 PM CLINICAL INDICATION: Left shoulder pain COMPARISON: None FINDINGS: The AC joint is well aligned. The glenohumeral joint is well located. There are no fractures. No bony abnormality is noted. IMPRESSION: No acute abnormality.
[2020-02-18] MEDS ORDERED: ACETAMINOPHEN 1,000 MG/100 ML RTUPB IV ONE (23:59)
[2020-02-19] MEDS ORDERED: ACETAMINOPHEN 1,000 MG/100 ML RTUPB IV ONE (00:48)
[2020-02-19] MEDS ORDERED: DIPHENHYDRAMINE HCL 50 MG/ML VIAL ONE (01:02)
[2020-02-19] MEDS ORDERED: HALOPERIDOL LACTATE INJ 5 MG/1 ML VIAL ONE (01:02)
[2020-02-19] MEDS ORDERED: LORAZEPAM INJ 2 MG/1 ML VIAL ONE (01:03)
[2020-02-19] MEDS ORDERED: DIPHENHYDRAMINE HCL 50 MG/ML VIAL IV ONE ×2 (01:05→01:15)
[2020-02-19] MEDS ORDERED: LORAZEPAM INJ 2 MG/1 ML VIAL IV ONE (01:30)
[2020-02-19] MEDS ORDERED: HALOPERIDOL LACTATE INJ 5 MG/1 ML VIAL IV ONE (01:30)
[2020-02-19] MEDS: LORAZEPAM INJ 2 MG/1 ML VIAL IV SCH ×2 (03:21→08:43)
[2020-02-19] MEDS: NORMAL SALINE 1000 ML 1,000 ML IV PRN (03:21)
[2020-02-19 03:54] LABS: ABSOLUTE BASOPHILS # (AUTO) 0.1 10^3/uL (0.0-0.2); ABSOLUTE EOSINOPHILS # (AUTO) 0.3 10^3/uL (0.0-0.6); ABSOLUTE LYMPHOCYTES (AUTO) 1.8 10^3/uL (0.5-4.7); ABSOLUTE NEUT (AUTO) 11.6 10^3/uL (1.7-8.2); BASOPHILS % (AUTO) 0.6 % (0-2); EOSINOPHILS % (AUTO) 1.6 % (0-6); HEMOGLOBIN 13.8 g/dL (13.5-17.0); LYMPHOCYTES % (AUTO) 11.4 % (13-45); MEAN CORPUSCULAR HEMOGLOBIN 31.5 pg (27.0-33.4); MEAN CORPUSCULAR HGB CONC 33.6 g/dL (32.0-36.0); MEAN CORPUSCULAR VOLUME 94 fl (80-97); MONOCYTES % (AUTO) 12.5 % (3-13); PLATELET COUNT 157 10^3/uL (150-450); RED BLOOD COUNT 4.38 10^6/uL (4.35-5.55); SEGMENTED NEUTROPHILS % (AUTO) 73.9 % (42-78); TOTAL CELLS COUNTED % (AUTO) 100 %; WHITE BLOOD COUNT 15.7 10^3/uL (4.0-10.5)
[2020-02-19 04:02] LABS: ALBUMIN 3.5 g/dL (3.5-5.0); ALKALINE PHOSPHATASE 69 U/L (38-126); ANION GAP 7 (5-19); ASPARTATE AMINO TRANSFERASE 98 U/L (17-59); BILIRUBIN,DIRECT 0.1 mg/dL (0.0-0.4); BLOOD UREA NITROGEN 10 mg/dL (7-20); CALCIUM 8.8 mg/dL (8.4-10.2); CARBON DIOXIDE 24 mmol/L (22-30); CHLORIDE 108 mmol/L (98-107); GLUCOSE 113 mg/dL (75-110); PHOSPHORUS 3.1 mg/dL (2.5-4.5); POTASSIUM 3.7 mmol/L (3.6-5.0); TOTAL PROTEIN 6.5 g/dL (6.3-8.2)
[2020-02-19] MEDS: PIPERACILLIN SODIUM/TAZOBACTAM 4.5 GM in NORMAL SALINE 100 ML IV SCH ×3 (06:21→18:27)
[2020-02-19] MEDS: VANCOMYCIN HCL 1,250 MG in DEXTROSE 5%-WATER 250 ML IV SCH ×3 (06:21→21:23)
--- NOTE | 2020-02-19 09:13 | RADIOLOGY REPORT (SQ) ---
EXAM DESCRIPTION: CHEST SINGLE VIEW IMAGES COMPLETED DATE/TIME: 02/19/2020 6:46 am REASON FOR STUDY: intubated COMPARISON: 02/18/2020 all caps soft and 02/17/2020 EXAM PARAMETERS: NUMBER OF VIEWS: One view. TECHNIQUE: Single frontal radiographic view of the chest acquired. RADIATION DOSE: NA LIMITATIONS: None. FINDINGS: LUNGS AND PLEURA: Increasing multifocal airspace opacities are seen throughout the right h emithorax. The left hemithorax appears stable. No pleural effusion. No pneumothorax. MEDIASTINUM AND HILAR STRUCTURES: Stable. HEART AND VASCULAR STRUCTURES: Stable. BONES: No acute findings. HARDWARE: Interval extubation. OTHER: No other significant finding. IMPRESSION: 1. Increasing right hemithorax multifocal airspace opacities. 2. Interval extubation. TECHNICAL DOCUMENTATION: JOB ID: [id number] 2010 [employer]- All Rights Reserved Reading location - IP/workstation name: [email or web address]
[2020-02-19] MEDS ORDERED: CHLORPROMAZINE HCL INJ 25 MG/1 ML AMPULE IV PRN (13:19)
[2020-02-19] MEDS: LEVOFLOXACIN 750 MG/D5W RTU 750 MG/150 ML RTUPB IV SCH (13:20)
[2020-02-19] MEDS: ENOXAPARIN SODIUM INJ 40 MG/0.4 ML DISP.SYRIN SUBCUT SCH (13:27)
[2020-02-19] MEDS: FAMOTIDINE INJ/PF 20 MG/2 ML SDV IV SCH ×2 (13:28→21:23)
[2020-02-19] MEDS ORDERED: CHLORPROMAZINE HCL INJ 25 MG/1 ML AMPULE IM PRN (13:32)
[2020-02-19] MEDS: BENZTROPINE MESYLATE INJ 2 MG/2 ML AMPULE IM SCH (13:55)
[2020-02-19] MEDS: PROPRANOLOL HCL 10 MG TABLET PO SCH ×2 (13:56→21:23)
--- NOTE | 2020-02-19 14:41 | PDOC CRITICAL CARE PROG REPORT ---
General Date:: 02/19/20 ICU Day:: 3 Hospital Day:: 3 Resuscitation Status: Full Code Events in the past 12 to 24 Hours:: This 34-year-old [facility] after having been brought in by private vehicle to the emergency department. He was unresponsive on arrival. He was hypertensive and tac hycardic. He was reportedly febrile, and his friends apparently purchased ice from a convenient store and packed him in it for transport to the emergency department, resulting in exposure hypothermia. While they were apparently present at the time the patient lost consciousness, they were not forthcoming with details, only raising suspicion for the possibility of drug abuse/overdose. Drug screen was positive for cocaine and marijuana. In the interim, many theories and allegations have arisen from various sources (friends, family members). In the emergency department department, in addition to the findings above, the patient was noted to have pinpoint pupils. The patient was intubated for airway protection. He was admitted to the ICU for stabilization. 02/17: In the interim, the staff have been bombarded by multiple phone calls from several family members. Complicated family dynamic. His parents are . The patient apparently lives with his mother (Nidia Nguyễn), who claims to know nothing about the patient's drug abuse behaviors or history. Of note, each time she calls, she seems to indicate incremental amounts of increased awareness and suspicion about his behavior. In addition, allegations of been made that the patient routinely receives a "quarter" of his mother's narcotic prescriptions each month. The patient's father (Pravin) is in contact with the son; however, the patient's father lives in [place], [place]. The patient also has 2 biological sisters (Ondina, to Junior; Mena is estranged from the family). Has a half-brother, "Mark who is a known heroin addict". The patient's father reports that he believes the patient has been incarcerated 3 or 4 times. He believes that one case certainly involved illicit drugs. He also adds that at least one case involved violent behavior and warns the staff that the patient has a "bad temper". He also indicates that the patient is believed to have been under psychiatric care during at least 1 incarceration; however, details are lacking at this time. Clinically, the patient remains intubated. He has been requiring significant Versed infusions along with Precedex and fentanyl to achieve adequate sedation. ABG this a.m. 7.33/44/69 on FiO2 30%. Copious lowery/brown secretions emanate from the ET tube circuit. Chest x-ray this morning shows interval improvement in aeration of the right upper lobe infiltrate noted on previous imaging on 02/17/2020. Patient was initiated empirically on Zosyn for aspiration pneumonia. Tracheal aspirate obtained yesterday at the bedside appears to, indeed, be polymicrobial with 3+ GPC in pairs, 2+ gram-negative coccobacilli, and 1+ gram-positive cocci in clusters. 02/18: Successfully extubated. On 2 LPM. However, the patient demonstrated behavioral/psychiatric obstacles to providing therapy yesterday, which required administration of Ativan 4 mg IV with Haldol 5 mg IV at 1900, which was followed by another Ativan 4 mg IV/Benadryl 25 mg IV approximately 6 hours later. He remains liberated from mechanical ventilatory support. Currently, sleeping comfortably. Awaiting psychiatric evaluation. On Zosyn/Levaquin/vancomycin for empiric coverage of right upper lobe pneumonia. Review of systems relevant to events:: Neurologic: Toxic metabolic encephalopathy Respiratory: Right upper lobe pneumonia, endotracheal intubation Psychiatric: Drug abuse, possible depression, possible suicidality Reason for ICU Addmission:: Possible Drug OD - Medications: Medications reviewed and adjusted accordingly: Yes Sedation:: Ativan Physical Exam Vital Signs: Temp Pulse Resp BP Pulse Ox 101.7 F H 109 H 28 H 129/86 H 96 02/18/20 20:59 02/18/20 20:00 02/19/20 08:00 02/19/20 07:49 02/19/20 08:00 Intake & Output 02/18/20 02/19/20 02/20/20 06:59 06:59 06:59 Intake Total 2766 3182 Output Total 869 3620 500 Balance 1897 342 -500 Weight 114.8 kg 117.7 kg Weight/Height Weight 117.7 kg Height 1.85 m General appearance: PRESENT: no acute distress, well-developed, well-nourished Head exam: PRESENT: atraumatic, normocephalic Eye exam: PRESENT: conjunctiva pink, EOMI, PERRLA. ABSENT: scleral icterus Ear exam: PRESENT: normal external ear exam Neck exam: ABSENT: carotid bruit, JVD, lymphadenopathy, thyromegaly Respiratory exam: PRESENT: rales - Scant, rhonchi - Scattered. ABSENT: wheezes Cardiovascular exam: PRESENT: RRR. ABSENT: diastolic murmur, rubs, systolic murmur Pulses: PRESENT: normal dorsalis pedis pul GI/Abdominal exam: PRESENT: normal bowel sounds, soft. ABSENT: distended, guarding, mass, organolmegaly, rebound, tenderness Extremities exam: PRESENT: full ROM. ABSENT: calf tenderness, clubbing, pedal edema Musculoskeletal exam: PRESENT: normal inspection. ABSENT: deformity Neurological exam: PRESENT: reflexes normal, CN II-XII grossly intact. ABSENT: motor sensory deficit, aphasic Focused psych exam: PRESENT: flight of ideas Skin exam: PRESENT: dry, intact, warm, other - Tattoos. ABSENT: cyanosis, rash Laboratory/Radiographs Laboratory Results: 02/19/20 03:31 02/19/20 03:31 02/18/20 02/19/20 02/19/20 14:30 03:31 03:31 WBC 15.7 H RBC 4.38 Hgb 13.8 Hct 41.0 MCV 94 MCH 31.5 MCHC 33.6 RDW 13.0 Plt Count 157 Seg Neutrophils % 73.9 Sodium 139.4 Potassium 3.7 Chloride 108 H Carbon Dioxide 24 Anion Gap 7 BUN 10 Creatinine 0.82 Est GFR ( Amer) > 60 Glucose 113 H Calcium 8.8 Phosphorus 3.1 Magnesium 1.9 Total Bilirubin 1.0 AST 98 H Alkaline Phosphatase 69 Total Protein 6.5 Albumin 3.5 Urine Color YELLOW Urine Appearance TURBID Urine pH 6.0 Ur Specific [place] 1.029 Urine Protein 30 H Urine Glucose (UA) NEGATIVE Urine Ketones 20 H Urine Blood NEGATIVE Urine Nitrite NEGATIVE Ur Leukocyte Esterase NEGATIVE Urine WBC (Auto) 5 Urine RBC (Auto) 3 02/17/20 02/17/20 03:40 03:40 Creatine Kinase 52 L Troponin I < 0.012 Impressions: Head CT 02/17/20 03:41 IMPRESSION: 1. No acute intracranial abnormality. 2. Chronic maxillary, ethmoid and sphenoid sinus disease. An air-fluid level in the right maxillary sinus suggest superimposed acute changes. 3. Additional findings as above. EVIDENCE OF ACUTE STROKE: NO Shoulder X-Ray 02/18/20 00:00 IMPRESSION: No acute abnormality. All labs, radiographs, diagnostic studies and EKGs were personally reviewed: Yes In addition, reports of radiographic and diagnostic studies were read: Yes Assessment and Plan - Diagnosis (1) Endotracheally intubated Is this a current diagnosis for this admission?: Yes Plan: * Successfully liberated from mechanical ventilation yesterday. On 2 LPM. (2) Drug overdose, multiple drugs Qualifiers: Encounter type: subsequent encounter Injury intent: undetermined intent Qualified Code(s): T50.914D - Poisoning by multiple unspecified drugs, medicaments and biological substances, undetermined, subsequent encounter Is this a current diagnosis for this admission?: Yes Plan: * Case discussed with psychiatry. Input appreciated. Need for IVC status confirmed. * Will stop Ativan. * Start Cogentin 1 mg IM daily; Haldol 5 mg IM every 12 hours; propranolol 5 mg p.o. twice daily; Thorazine 50 mg IM every 6 hours as needed. (3) Pneumonia Qualifiers: Pneumonia type: due to unspecified organism Laterality: right Lung location: upper lobe of lung Qualified Code(s): J18.9 - Pneumonia, unspecified organism Is this a current diagnosis for this admission?: Yes Plan: * Start maintenance fluids: 1/2NS +20 mEq KCl @ 100 mL/h. * Trach aspirate culture pending. * On empiric Zosyn/Levaquin/vancomycin. (4) Cocaine abuse Is this a current diagnosis for this admission?: Yes (5) Marijuana abuse Is this a current diagnosis for this admission?: Yes (6) Toxic metabolic encephalopathy Is this a current diagnosis for this admission?: Yes Plan: * Resolved. (7) Atrial fibrillation with rapid ventricular response Is this a current diagnosis for this admission?: Yes Plan: * Paroxysmal. * Troponin was undetectable. * Now back in sinus rhythm. (8) Hypothermia due to exposure Is this a current diagnosis for this admission?: Yes Plan Summary: Okay to transfer to floor from medical standpoint. Will need sitter. Critical Time Critical Time (minutes): 30 Level of Care: ICU -: 1. The care of a critical patient is a dynamic process. This note is a sales representative church furniture synopsis but static in nature. The timeframe for treatments given in order is not necessarily the actual time these treatments may have been done. 2. This patient requires critical care secondary to ongoing requirements for therapy not offered or safe outside the critical care environment. Transfer to a lower level of care will result in altered life or limb morbidity and mortality. 3. Multidisciplinary rounds completed. 4. ABCDE bundle addressed.
[2020-02-19] MEDS: POTASSI CL 20 MEQ/1/2NS 1L 20 MEQ/1,000 ML RTUINJ IV PRN (17:05)
[2020-02-19] MEDS: ACETAMINOPHEN SOLN 325 MG/10.15 ML UDCUP NG PRN (19:50)
[2020-02-19] MEDS: HALOPERIDOL LACTATE INJ 5 MG/1 ML VIAL IV PRN (21:24)
[2020-02-19 22:07] LABS: VANCOMYCIN,TROUGH 10.1 ug/mL (5.0-20.0)
[2020-02-20] MEDS: PIPERACILLIN SODIUM/TAZOBACTAM 4.5 GM in NORMAL SALINE 100 ML IV SCH ×4 (00:04→17:37)
[2020-02-20] MEDS: HALOPERIDOL LACTATE INJ 5 MG/1 ML VIAL IM SCH ×3 (03:47→21:19)
[2020-02-20 06:10] LABS: ABSOLUTE BASOPHILS # (AUTO) 0.1 10^3/uL (0.0-0.2); ABSOLUTE EOSINOPHILS # (AUTO) 0.3 10^3/uL (0.0-0.6); ABSOLUTE LYMPHOCYTES (AUTO) 1.7 10^3/uL (0.5-4.7); ABSOLUTE MONOCYTES (AUTO) 1.2 10^3/uL (0.1-1.4); ABSOLUTE NEUT (AUTO) 9.9 10^3/uL (1.7-8.2); BASOPHILS % (AUTO) 0.6 % (0-2); EOSINOPHILS % (AUTO) 2.2 % (0-6); HEMATOCRIT 37.7 % (37.9-51.0); HEMOGLOBIN 13.2 g/dL (13.5-17.0); LYMPHOCYTES % (AUTO) 12.8 % (13-45); MEAN CORPUSCULAR HEMOGLOBIN 32.4 pg (27.0-33.4); MEAN CORPUSCULAR HGB CONC 34.9 g/dL (32.0-36.0); MEAN CORPUSCULAR VOLUME 93 fl (80-97); MONOCYTES % (AUTO) 9.4 % (3-13); PLATELET COUNT 160 10^3/uL (150-450); RED BLOOD COUNT 4.06 10^6/uL (4.35-5.55); RED CELL DISTRIBUTION WIDTH 12.7 % (11.5-14.0); TOTAL CELLS COUNTED % (AUTO) 100 %; WHITE BLOOD COUNT 13.2 10^3/uL (4.0-10.5)
[2020-02-20 06:35] LABS: ALBUMIN 3.1 g/dL (3.5-5.0); ALKALINE PHOSPHATASE 74 U/L (38-126); ANION GAP 6 (5-19); ASPARTATE AMINO TRANSFERASE 87 U/L (17-59); BILIRUBIN,DIRECT 0.2 mg/dL (0.0-0.4); BILIRUBIN,TOTAL 1.2 mg/dL (0.2-1.3); BLOOD UREA NITROGEN 5 mg/dL (7-20); CALCIUM 9.1 mg/dL (8.4-10.2); CARBON DIOXIDE 26 mmol/L (22-30); CHLORIDE 106 mmol/L (98-107); GLUCOSE 101 mg/dL (75-110); PHOSPHORUS 3.1 mg/dL (2.5-4.5); POTASSIUM 3.8 mmol/L (3.6-5.0); TOTAL PROTEIN 5.8 g/dL (6.3-8.2)
[2020-02-20] MEDS: POTASSI CL 20 MEQ/1/2NS 1L 20 MEQ/1,000 ML RTUINJ IV PRN (07:15)
--- NOTE | 2020-02-20 08:37 | RADIOLOGY REPORT (SQ) ---
EXAM DESCRIPTION: CHEST SINGLE VIEW IMAGES COMPLETED DATE/TIME: 02/20/2020 6:47 am REASON FOR STUDY: intubated COMPARISON: AP view of the chest from 02/19/2020. EXAM PARAMETERS: NUMBER OF VIEWS: One view. TECHNIQUE: An AP view of the chest was obtained. RADIATION DOSE: NA LIMITATIONS: None. FINDINGS: LUNGS AND PLEURA: Unchanged appearance of the lungs and pleura. MEDIASTINUM AND HILAR STRUCTURES: Stable mediastinal and hilar contours. HEART AND VASCULAR STRUCTURES: Stable cardiac silhouette. BONES: No acute findings. HARDWARE: None in the chest. OTHER: No other finding. IMPRESSION: Unchanged radiographic appearance of the chest. TECHNICAL DOCUMENTATION: JOB ID: [id number] 2010 [employer]- All Rights Reserved Reading location - IP/workstation name: [email or web address]
[2020-02-20] MEDS: LEVOFLOXACIN 750 MG/D5W RTU 750 MG/150 ML RTUPB IV SCH (09:34)
[2020-02-20] MEDS: ENOXAPARIN SODIUM INJ 40 MG/0.4 ML DISP.SYRIN SUBCUT SCH (09:35)
[2020-02-20] MEDS: BENZTROPINE MESYLATE INJ 2 MG/2 ML AMPULE IM SCH (09:35)
[2020-02-20] MEDS: FAMOTIDINE INJ/PF 20 MG/2 ML SDV IV SCH ×2 (09:35→21:24)
[2020-02-20] MEDS: PROPRANOLOL HCL 10 MG TABLET PO SCH ×2 (09:36→21:17)
[2020-02-20] MEDS: VANCOMYCIN HCL 1,250 MG in DEXTROSE 5%-WATER 250 ML IV SCH (09:54)
[2020-02-20] MEDS: HALOPERIDOL LACTATE INJ 5 MG/1 ML VIAL IV PRN (12:29)
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
[2020-02-20] MEDS: VANCOMYCIN HCL 1,500 MG in DEXTROSE 5%-WATER 250 ML IV SCH ×2 (15:01→21:22)
[2020-02-20] MEDS ORDERED: ACETAMINOPHEN SOLN 325 MG/10.15 ML UDCUP PO PRN (17:09)
[2020-02-20] MEDS ORDERED: ALBUTEROL SULFATE 0.083% NEB 2.5 MG/3 ML AMPUL NEB PRN (17:12)
[2020-02-20] MEDS: GUAIFENESIN SYRP 200 MG/10 ML UDC PO SCH ×2 (17:37→21:17)
--- NOTE | 2020-02-20 18:02 | PDOC PROGRESS REPORT ---
Subjective Date:: 02/20/20 Reason For Visit: UNRESPONSIVE STATE HYPOTHERMIA CARDIAC DYSRHYTHMIA Physical Exam Vital Signs: Temp Pulse Resp BP Pulse Ox 97.5 F 112 H 18 143/58 H 90 L 02/20/20 15:02 02/20/20 15:02 02/20/20 15:02 02/20/20 15:02 02/20/20 15:02 Intake & Output 02/19/20 02/20/20 02/21/20 06:59 06:59 06:59 Intake Total 3182 1900 400 Output Total 2840 4867 Balance 342 -2975 400 Weight 117.7 kg 112.2 kg General appearance: PRESENT: no acute distress, disheveled, well-developed, well-nourished, other - generalized weakness Head exam: PRESENT: atraumatic, normocephalic Eye exam: PRESENT: conjunctiva pink, EOMI, PERRLA Mouth exam: PRESENT: moist, tongue midline Teeth exam: PRESENT: poor dentation Respiratory exam: PRESENT: clear to auscultation randy, rhonchi - R>L, symmetrical, unlabored. ABSENT: rales, wheezes Cardiovascular exam: PRESENT: RRR, tachycardia. ABSENT: diastolic murmur, rubs, systolic murmur Pulses: PRESENT: normal dorsalis pedis pul Vascular exam: PRESENT: normal capillary refill GI/Abdominal exam: PRESENT: normal bowel sounds, soft. ABSENT: distended, guarding, mass, organolmegaly, rebound, tenderness Rectal exam: PRESENT: deferred Gentrourinary exam: PRESENT: indwelling catheter Extremities exam: PRESENT: joint swelling - left shoulder, tenderness - left shoulder. ABSENT: calf tenderness, clubbing, full ROM, pedal edema Neurological exam: PRESENT: alert, awake, oriented to person, oriented to place, oriented to time, oriented to situation, CN II-XII grossly intact. ABSENT: motor sensory deficit Psychiatric exam: PRESENT: agitated, appropriate affect. ABSENT: homicidal ideation, suicidal ideation Skin exam: PRESENT: dry, intact, warm. ABSENT: cyanosis, rash Results Laboratory Results: 02/20/20 05:45 02/20/20 05:45 02/20/20 02/20/20 05:45 05:45 WBC 13.2 H RBC 4.06 L Hgb 13.2 L Hct 37.7 L MCV 93 MCH 32.4 MCHC 34.9 RDW 12.7 Plt Count 160 Seg Neutrophils % 75.0 Sodium 138.4 Potassium 3.8 Chloride 106 Carbon Dioxide 26 Anion Gap 6 BUN 5 L Creatinine 0.70 Est GFR ( Amer) > 60 Glucose 101 Calcium 9.1 Phosphorus 3.1 Magnesium 1.8 Total Bilirubin 1.2 AST 87 H Alkaline Phosphatase 74 Total Protein 5.8 L Albumin 3.1 L 02/17/20 12:30 Tracheal Aspirate Gram Stain - Final 02/17/20 12:30 Tracheal Aspirate Sputum Culture - Final Pseudomonas Aeruginosa Mrsa (Meth Resis Staph Aureus) Normal Reva 02/17/20 02/17/20 03:40 03:40 Creatine Kinase 52 L Troponin I < 0.012 Impressions: Head CT 02/17/20 03:41 IMPRESSION: 1. No acute intracranial abnormality. 2. Chronic maxillary, ethmoid and sphenoid sinus disease. An air-fluid level in the right maxillary sinus suggest superimposed acute changes. 3. Additional findings as above. EVIDENCE OF ACUTE STROKE: NO Shoulder X-Ray 02/18/20 00:00 IMPRESSION: No acute abnormality. Chest X-Ray 02/20/20 06:00 IMPRESSION: Unchanged radiographic appearance of the chest. Assessment and Plan - Diagnosis (1) Pneumonia Qualifiers: Pneumonia type: due to unspecified organism Laterality: right Lung loc ation: upper lobe of lung Qualified Code(s): J18.9 - Pneumonia, unspecified organism Is this a current diagnosis for this admission?: Yes Plan: CXR shows Rt multifocal airspace disease. Blood cultures negative at 72 hours. Trach aspirate isolated Pseudomonas aeruginosa and MRSA. Patient is provided supplemental oxygen as needed maintain saturations greater than 89%. Patient is empirically placed on Zosyn/Levaquin/vancomycin. As needed nebulizer treatments. He is placed on Robitussin as needed. Pulmonary toilet is encouraged with incentive spirometer, flutter valve, early ambulation. (2) MRSA pneumonia Is this a current diagnosis for this admission?: Yes Plan: As above. (3) Pneumonia due to Pseudomonas aeruginosa Is this a current diagnosis for this admission?: Yes Plan: As above. (4) Drug overdose, multiple drugs Qualifiers: Encounter type: subsequent encounter Injury intent: undetermined intent Qualified Code(s): T50.914D - Poisoning by multiple unspecified drugs, medicaments and biological substances, undetermined, subsequent encounter Is this a current diagnosis for this admission?: Yes Plan: Load Tester spoke with mental health team. Continues on IVC status w/ sitter in place. Continue medications per their recommendations: Cogentin 1 mg IM daily; Haldol 5 mg IM every 12 hours; propranolol 5 mg p.o. twice daily; Thorazine 50 mg IM every 6 hours as needed. (5) Toxic metabolic encephalopathy Is this a current diagnosis for this admission?: Yes Plan: Resolved. (6) Atrial fibrillation with rapid ventricular response Is this a current diagnosis for this admission?: Yes Plan: Unable to determine type of atrial fibrillation. Patient presented with paroxysmal atrial fibrillation. Now in sinus rhythm. Given the clinical picture and positive cocaine on the drug screen this is most likely cocaine toxicity. Monitor on telemetry. (7) Hypothermia due to exposure Is this a current diagnosis for this admission?: Yes Plan: Resolved. (8) Endotracheally intubated Is this a current diagnosis for this admission?: Yes Plan: Successfully liberated from mechanical ventilation 02/18/20 Continue supplemental oxygen as needed to maintain saturations greater than 89%. Aggressive pulmonary toilet. Speech therapy consultation. (9) Marijuana abuse Is this a current diagnosis for this admission?: Yes Plan: Cessation to be encouraged. (10) Cocaine abuse Is this a current diagnosis for this admission?: Yes Plan: Avoid beta-blockers. Cessation encouraged. Mental health consulted. (11) Shoulder pain Qualifiers: Chronicity: acute Laterality: left Qualified Code(s): M25.512 - Pain in left shoulder Is this a current diagnosis for this admission?: Yes Plan: Imagining on arrival was negative for acute findings. Now with edema; will repeat to eval for effusion. Consider Orthopedic consultation. Tylenol and Toradol prn pain. - Time Time Spent with patient: 35 or more minutes Medications reviewed and adjusted accordingly: Yes Anticipated Discharge Disposition: TBD Anticipated Discharge Timeframe: TBD
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
[2020-02-20] MEDS: KETOROLAC TROMETHAMINE INJ/PF 30 MG/1 ML SDV IV PRN (18:35)
--- NOTE | 2020-02-20 19:05 | RADIOLOGY REPORT (SQ) ---
EXAM DESCRIPTION: SHOULDER LEFT 1 VIEW IMAGES COMPLETED DATE/TIME: 02/20/2020 6:57 pm REASON FOR STUDY: pain, edema COMPARISON: 02/18/2020 NUMBER OF VIEWS: One view. TECHNIQUE: A single slightly internally rotated view acquired of the left shoulder. LIMITATIONS: None. FINDINGS: MINERALIZATION: Normal. BONES: No acute fracture. No worrisome bone lesions. JOINTS: No dislocation. VISUALIZED LUNGS AND RIBS: No pneumothorax. No rib fracture. SOFT TISSUES: No radiopaque foreign body. OTHER: No other significant finding. IMPRESSION: NEGATIVE STUDY OF THE LEFT SHOULDER. NO RADIOGRAPHIC EVIDENCE OF ACUTE INJURY. TECHNICAL DOCUMENTATION: JOB ID: [id number] 2010 [employer]- All Rights Reserved Reading location - IP/workstation name: [email or web address]
[2020-02-20] MEDS ORDERED: PIPERACILLIN/TAZOBACTAM 4.5 GM VIAL IV ONE (23:43)
[2020-02-21] MEDS: PIPERACILLIN SODIUM/TAZOBACTAM 4.5 GM in NORMAL SALINE 100 ML IV SCH ×3 (00:02→13:38)
[2020-02-21] MEDS: KETOROLAC TROMETHAMINE INJ/PF 30 MG/1 ML SDV IV PRN (03:59)
[2020-02-21] MEDS: VANCOMYCIN HCL 1,500 MG in DEXTROSE 5%-WATER 250 ML IV SCH ×3 (06:39→21:36)
[2020-02-21] MEDS: FAMOTIDINE INJ/PF 20 MG/2 ML SDV IV SCH ×2 (09:53→21:34)
[2020-02-21] MEDS: PROPRANOLOL HCL 10 MG TABLET PO SCH ×2 (09:53→21:36)
[2020-02-21] MEDS: HALOPERIDOL LACTATE INJ 5 MG/1 ML VIAL IM SCH ×2 (09:53→21:33)
[2020-02-21] MEDS: LEVOFLOXACIN 750 MG/D5W RTU 750 MG/150 ML RTUPB IV SCH (09:55)
[2020-02-21] MEDS: GUAIFENESIN SYRP 200 MG/10 ML UDC PO SCH ×4 (09:55→21:34)
[2020-02-21] MEDS: BENZTROPINE MESYLATE INJ 2 MG/2 ML AMPULE IM SCH (09:55)
[2020-02-21] MEDS: ENOXAPARIN SODIUM INJ 40 MG/0.4 ML DISP.SYRIN SUBCUT SCH (09:55)
--- NOTE | 2020-02-21 15:44 | PDOC CONSULTATION ---
Consultation-Blank Consultation: Behavioral Health Consult: Re Evaluation Collateral and discussion with Hospitalist from [phone]. Presenting Problem: Full Involuntary Commitment since 01/20/2020 for polysubstance overdose and use. Hospitalist identified patient is not medically cleared yet. She noted he is better on room air today, with the pneumonia the WBC has to be consistently trending down (today was 13.2) and Fever free for 2 full days (night time is when he has had fever), and he is very weak/can barely stand without assistance so PT has been ordered. She noted medical clearance likely in 2 days, maybe 3. She stated this morning patient was polite to her and thankful for treatment. She also noted patient had a female appeared in her 50's (thinking it was possibly his mother but not certain) this morning, they got along well, and it was a pleasant interaction. Clinical Presentation: Overdose Polysubstance Use Cocaine Cannabis No medication changes at this time. Continue current regimen. Impression/Plan: Recommendation to maintain FULL Involuntary Commitment. Patient is not medically cleared yet with expectation of it happening in 2-3 days. Today is the first day he has not been belligerent, has been cooperative and pleasant. Consulted with Dr. Alvarado regarding the management and care of patient. Attending Hospitalist aware of recommendations.
--- NOTE | 2020-02-21 15:54 | PDOC PROGRESS REPORT ---
Subjective Date:: 02/21/20 Subjective:: Patient is a 34-year-old male with a past medical history significant for substance abuse and tobacco dependence who was admitted to the ICU for drug overdose and toxic metabolic encephalopathy requiring intubation mechanical ventilation. Patient was extubated 48 hours later to supplemental oxygen by nasal cannula. He was downgraded to the hospitalist service on 02/20/2020. Patient was seen on morning rounds. Is found resting in bed, comfortably, on room air. He reports that he is feeling well today. He notes decreased dyspnea and cough. He would like to have his [place] catheter removed and be allowed to walk about his room. Otherwise, he remains concerned about his planned move to [place]. He was polite during the interaction and thankful for his care. He denied fever, chills, chest pain, palpitations, abdominal pain, nausea vomiting and diarrhea. Appetite is improved. Does continue to have some left shoulder discomfort. He has no other questions or concerns at this time. No concerns per nursing. Reason For Visit: UNRESPONSIVE STATE HYPOTHERMIA CARDIAC DYSRHYTHMIA Physical Exam Vital Signs: Temp Pulse Resp BP Pulse Ox 98.3 F 84 18 136/77 H 100 02/21/20 10:00 02/21/20 00:18 02/21/20 00:18 02/21/20 00:18 02/21/20 00:18 Intake & Output 02/20/20 02/21/20 02/22/20 06:59 06:59 06:59 Intake Total 1900 1400 490 Output Total 4875 1450 700 Balance -2975 -50 -210 Weight 112.2 kg 113 kg General appearance: PRESENT: no acute distress, cooperative, well-developed, well-nourished, other - Generalized weakness Head exam: PRESENT: atraumatic, normocephalic Eye exam: PRESENT: conjunctiva pink, EOMI, PERRLA. ABSENT: scleral icterus Mouth exam: PRESENT: moist, tongue midline Respiratory exam: PRESENT: rhonchi - Skin bilateral, symmetrical, unlabored, other - Room air. ABSENT: rales, wheezes Cardiovascular exam: PRESENT: RRR. ABSENT: diastolic murmur, rubs, systolic murmur Pulses: PRESENT: normal dorsalis pedis pul Vascular exam: PRESENT: normal capillary refill GI/Abdominal exam: PRESENT: normal bowel sounds, soft. ABSENT: distended, guarding, mass, organolmegaly, rebound, tenderness Rectal exam: PRESENT: deferred Gentrourinary exam: PRESENT: indwelling catheter Extremities exam: PRESENT: tenderness - Left shoulder. ABSENT: calf tenderness, clubbing, full ROM, pedal edema Neurological exam: PRESENT: alert, awake, oriented to person, oriented to place, oriented to time, oriented to situation, CN II-XII grossly intact. ABSENT: motor sensory deficit Psychiatric exam: PRESENT: appropriate affect, normal mood. ABSENT: homicidal ideation, suicidal ideation Skin exam: PRESENT: dry, intact, warm. ABSENT: cyanosis, rash Results Laboratory Results: 02/20/20 05:45 02/20/20 05:45 02/17/20 02/17/20 03:40 03:40 Creatine Kinase 52 L Troponin I < 0.012 Impressions: Head CT 02/17/20 03:41 IMPRESSION: 1. No acute intracranial abnormality. 2. Chronic maxillary, ethmoid and sphenoid sinus disease. An air-fluid level in the right maxillary sinus suggest superimposed acute changes. 3. Additional findings as above. EVIDENCE OF ACUTE STROKE: NO Shoulder X-Ray 02/20/20 00:00 IMPRESSION: NEGATIVE STUDY OF THE LEFT SHOULDER. NO RADIOGRAPHIC EVIDENCE OF ACUTE INJURY. Chest X-Ray 02/20/20 06:00 IMPRESSION: Unchanged radiographic appearance of the chest. Assessment and Plan - Diagnosis (1) Pneumonia Qualifiers: Pneumonia type: due to unspecified organism Laterality: right Lung location: upper lobe of lung Qualified Code(s): J18.9 - Pneumonia, unspecified organism Is this a current diagnosis for this admission?: Yes Plan: CXR shows Rt multifocal airspace disease. Blood cultures negative at 4 days. Trach aspirate isolated Pseudomonas aeruginosa and MRSA. Patient is provided supplemental oxygen as needed maintain saturations greater t jeff 89%. Patient was empirically placed on Zosyn/Levaquin/vancomycin. Discontinue Zosyn: Received 5 days of therapy. Plan to transition to p.o. Levaquin and Bactrim tomorrow if he remains afebrile. As needed nebulizer treatments. Continue Robitussin as needed. Pulmonary toilet is encouraged with incentive spirometer, flutter valve, early ambulation. (2) MRSA pneumonia Is this a current diagnosis for this admission?: Yes Plan: As above. (3) Pneumonia due to Pseudomonas aeruginosa Is this a current diagnosis for this admission?: Yes Plan: As above. (4) Drug overdose, multiple drugs Qualifiers: Encounter type: subsequent encounter Injury intent: undetermined intent Qualified Code(s): T50.914D - Poisoning by multiple unspecified drugs, medicaments and biological substances, undetermined, subsequent encounter Is this a current diagnosis for this admission?: Yes Plan: Hammer Smith spoke with mental health team. Continues on IVC status w/ sitter in place. Continue medications per their recommendations: Cogentin 1 mg IM daily; Haldol 5 mg IM every 12 hours; propranolol 5 mg p.o. twice daily; Thorazine 50 mg IM every 6 hours as needed. (5) Toxic metabolic encephalopathy Is this a current diagnosis for this admission?: Yes Plan: Resolved. (6) Atrial fibrillation with rapid ventricular response Is this a current diagnosis for this admission?: Yes Plan: Unable to determine type of atrial fibrillation. Patient presented with paroxysmal atrial fibrillation. Now in sinus rhythm. Given the clinical picture and positive cocaine on the drug screen this is most likely cocaine toxicity. Monitor on telemetry. (7) Hypothermia due to exposure Is this a current diagnosis for this admission?: Yes Plan: Resolved. (8) Endotracheally intubated Is this a current diagnosis for this admission?: Yes Plan: Successfully liberated from mechanical ventilation 02/18/20 Continue supplemental oxygen as needed to maintain saturations greater than 89%. Aggressive pulmonary toilet. Speech therapy consultation. (9) Marijuana abuse Is this a current diagnosis for this admission?: Yes Plan: Cessation to be encouraged. (10) Cocaine abuse Is this a current diagnosis for this admission?: Yes Plan: Avoid beta-blockers. Cessation encouraged. Mental health consulted. (11) Shoulder pain Qualifiers: Chronicity: acute Laterality: left Qualified Code(s): M25.512 - Pain in left shoulder Is this a current diagnosis for this admission?: Yes Plan: Imagining on arrival was negative for acute findings. Repeat 1 view is unremarkable. Now with edema; improved today Consider Orthopedic consultation. Tylenol and Toradol prn pain. PT ordered. - Time Time Spent with patient: 25-34 minutes Medications reviewed and adjusted accordingly: Yes Anticipated Discharge Disposition: TBD Anticipated Discharge Timeframe: within 72 hours - med cleared
[2020-02-22] MEDS: POTASSI CL 20 MEQ/1/2NS 1L 20 MEQ/1,000 ML RTUINJ IV PRN ×2 (02:20→15:23)
[2020-02-22] MEDS: KETOROLAC TROMETHAMINE INJ/PF 30 MG/1 ML SDV IV PRN (02:26)
[2020-02-22] MEDS: VANCOMYCIN HCL 1,500 MG in DEXTROSE 5%-WATER 250 ML IV SCH (05:48)
[2020-02-22 05:55] LABS: HEMATOCRIT 36.1 % (37.9-51.0); HEMOGLOBIN 12.5 g/dL (13.5-17.0); MEAN CORPUSCULAR HEMOGLOBIN 31.9 pg (27.0-33.4); MEAN CORPUSCULAR HGB CONC 34.5 g/dL (32.0-36.0); MEAN CORPUSCULAR VOLUME 92 fl (80-97); PLATELET COUNT 234 10^3/uL (150-450); RED BLOOD COUNT 3.91 10^6/uL (4.35-5.55); RED CELL DISTRIBUTION WIDTH 12.6 % (11.5-14.0); WHITE BLOOD COUNT 12.2 10^3/uL (4.0-10.5)
[2020-02-22 06:17] LABS: ANION GAP 5 (5-19); BLOOD UREA NITROGEN 11 mg/dL (7-20); CALCIUM 9.1 mg/dL (8.4-10.2); CARBON DIOXIDE 27 mmol/L (22-30); CHLORIDE 109 mmol/L (98-107); GLUCOSE 115 mg/dL (75-110); POTASSIUM 3.9 mmol/L (3.6-5.0)
[2020-02-22 06:53] LABS: VANCOMYCIN,TROUGH 18.7 ug/mL (5.0-20.0)
[2020-02-22] MEDS ORDERED: NORMAL SALINE 1000 ML 1,000 ML IV ONE (07:58)
[2020-02-22] MEDS: HALOPERIDOL 5 MG TABLET PO SCH ×2 (10:17→21:53)
[2020-02-22] MEDS: ENOXAPARIN SODIUM INJ 40 MG/0.4 ML DISP.SYRIN SUBCUT SCH (10:17)
[2020-02-22] MEDS: PROPRANOLOL HCL 10 MG TABLET PO SCH ×2 (10:17→21:52)
[2020-02-22] MEDS: GUAIFENESIN SYRP 200 MG/10 ML UDC PO SCH ×4 (10:17→21:52)
[2020-02-22] MEDS: FAMOTIDINE INJ/PF 20 MG/2 ML SDV IV SCH ×2 (10:17→21:52)
[2020-02-22] MEDS: SULFAMETHOXAZOLE/TRIMETHOPRIM 800-160 MG TABLET PO SCH ×2 (10:17→18:27)
[2020-02-22] MEDS: BENZTROPINE MESYLATE 1 MG TABLET PO SCH (10:17)
[2020-02-22] MEDS: LEVOFLOXACIN 750 MG TABLET PO SCH (11:33)
[2020-02-22 16:33] LABS: ANION GAP 6 (5-19); BLOOD UREA NITROGEN 14 mg/dL (7-20); CALCIUM 8.9 mg/dL (8.4-10.2); CARBON DIOXIDE 24 mmol/L (22-30); CHLORIDE 109 mmol/L (98-107); GLUCOSE 107 mg/dL (75-110); POTASSIUM 4.3 mmol/L (3.6-5.0)
--- NOTE | 2020-02-22 16:41 | PDOC CONSULTATION ---
Consultation-Blank Consultation: Behavioral Health Consult: Re Evaluation Face to Face evaluation with patient from [id number]. Collateral from Attending Hospitalist at [phone]. Presenting Problem: Full Involuntary Commitment since 01/20/2020 for polysubstance overdose and use. Today patient was sitting upright in the recliner next to bed. He was asleep but woke up quickly and easily. He did not recall talking with this clinician Sunday. Reiterated how bystanders found him at a gas station unresponsive and brought him to the hospital. Again inquired if he had tried to hurt/harm/kill self which patient denied. He admitted to regular use of Cocaine and Cannabis for the past 4-5 years. Patient further stated "I do it just to have fun, I am not an addict/fiend/junkie." He denied current suicidal ideation. He denied previous mental health and substance abuse treatment. He confirmed it was his mother who visited him yesterday morning and commented "I broke down like a baby with her." He confirmed he is moving to [place] with maternal Uncle Gael Healy, has a bus ticket (bus station next to [employer]). He was not aware of time. He stated he would like to be discharged by tomorrow to be able to visit with mother and sister, get things ready for catching the bus to [place]. He reported he would look into treatment in [place]. He was adamant "it is very important I make the bus, I don't want to miss it, I don't want to get stuck here, and fall back into the bad path." Patient was alert and oriented to self, person, place, time and situation (when informed). Mood was euthymic with congruent affect. He denied current suicidal and homicidal ideation. Patient did not appear to be responding to internal stimuli as evidenced by fair eye contact, answering questions appropriately when addressed, being engaged in evaluation, and carrying on dialogue conversation. Thought processes were linear and organized. He also demonstrated future/forward/goal oriented thinking with concern about catching the bus he has arranged and ticket for to [place]. Conversational speech was within normal limits for rate, tone and prosody. Intellectual abilities are estimated to be average. Insight, judgment and impulse control were fair as evidenced by being sober and wanting to move forward with plans to move to [place] for fresh start. Patient was calm, cooperative, pleasant, and even cordial saying thank you and giving hand shake. Phone discussion with Hospitalist revealed patient is medically cleared, on oral antibiotics, and only concern was elevated Creatinine earlier. She noted treatment for that is fluids, bolis, and repeat lab work. She stated noted the fluids and bolis were administered so will do a repeat lab and if in range can be discharged today. Clinical Presentation: Overdose- Accidental Polysubstance Use Cocaine Cannabis Impression/Plan: Recommendation to RESCIND Full Involuntary Commitment. Patient's mental status has improved. He is alert and oriented. He has admitted while lethargic and now oriented that he uses Cocaine and Cannabis regularly and denied any attempt at hurting/harming/trying to kill self. He denied current suicidal ideation. He demonstrated future/forward/goal oriented thinking with concern about catching the bus he has a ticket for to move to [place] with his maternal Uncle. Hospitalist noted patient is medically cleared with only concerns for elevated Creatinine levels which treatment had been provided (fluids, bolis) and just require lab redraw. Consulted with Dr. Alvarado regarding the management and care of patient. Attending Hospitalist aware of recommendations. If unable to discharge today would like to assist patient with bus ticket changes if possible.
[2020-02-22] MEDS ORDERED: NORMAL SALINE 1000 ML 1,000 ML IV PRN (16:45)
--- NOTE | 2020-02-22 17:08 | PDOC PROGRESS REPORT ---
Subjective Date:: 02/22/20 Subjective:: Patient is a 34-year-old male with a past medical history significant for substance abuse and tobacco dependence who was admitted to the ICU for drug overdose and toxic metabolic encephalopathy requiring intubation mechanical ventilation. Patient was extubated 48 hours later to supplemental oxygen by nasal cannula. He was downgraded to the hospitalist service on 02/20/2020. Patient was seen on morning rounds. He is found sitting up in the recliner, comfortably, on room air. Earlier today, he was noted to be ambulating in the hallway, independently, physical therapy at standby. He reports that he is feeling well today; denies all symptoms. Reports that his shortness of breath and cough have resolved. He is very polite today, again expresses gratitude for his care. He tells me that he is hopeful to be well enough to be discharged tomorrow so that he may see his family and then catch his bus on Sunday to move to [place]. He tells me that he plans to live with a family member in [place]; "hoping for a clean break." I tell him that it is quite possible that he will be well enough to discharge tomorrow but this will ultimately depend upon his renal function. Patient expresses understanding and again thanks us for his care. He denied fever, chills, chest pain, palpitations, abdominal pain, nausea vomiting and diarrhea. He has no other questions or concerns at this time. No concerns per nursing. Reason For Visit: UNRESPONSIVE STATE HYPOTHERMIA CARDIAC DYSRHYTHMIA Physical Exam Vital Signs: Temp Pulse Resp BP Pulse Ox 99.1 F 89 18 131/66 H 99 02/22/20 10:00 02/22/20 00:30 02/22/20 00:30 02/22/20 00:30 02/22/20 00:30 Intake & Output 02/21/20 02/22/20 02/23/20 06:59 06:59 06:59 Intake Total 2400 2940 4179 Output Total 1450 2600 Balance 549 278 7013 Weight 113 kg 111.7 kg General appearance: PRESENT: no acute distress, cooperative, well-developed, well-nourished Head exam: PRESENT: atraumatic, normocephalic Eye exam: PRESENT: conjunctiva pink, EOMI, PERRLA. ABSENT: scleral icterus Mouth exam: PRESENT: moist, tongue midline Respiratory exam: PRESENT: clear to auscultation randy, symmetrical, unlabored, other - Room air. ABSENT: rales, rhonchi, wheezes Cardiovascular exam: PRESENT: RRR. ABSENT: diastolic murmur, rubs, systolic murmur Pulses: PRESENT: normal dorsalis pedis pul Vascular exam: PRESENT: normal capillary refill Extremities exam: PRESENT: full ROM, tenderness - Left shoulder. ABSENT: calf tenderness, clubbing, joint swelling, pedal edema Musculoskeletal exam: PRESENT: ambulatory - Independently Neurological exam: PRESENT: alert, awake, oriented to person, oriented to place, oriented to time, oriented to situation, CN II-XII grossly intact. ABSENT: motor sensory deficit Psychiatric exam: PRESENT: appropriate affect, normal mood. ABSENT: homicidal ideation, suicidal ideation Skin exam: PRESENT: dry, intact, warm. ABSENT: cyanosis, rash Results Laboratory Results: 02/22/20 05:41 02/22/20 16:06 02/22/20 02/22/20 02/22/20 05:41 05:41 14:25 WBC 12.2 H RBC 3.91 L Hgb 12.5 L Hct 36.1 L MCV 92 MCH 31.9 MCHC 34.5 RDW 12.6 Plt Count 234 Sodium 140.9 Cancelled Potassium 3.9 Cancelled Chloride 109 H Cancelled Carbon Dioxide 27 Cancelled Anion Gap 5 Cancelled BUN 11 Cancelled Creatinine 1.34 H Cancelled Est GFR ( Amer) > 60 Cancelled Est GFR (Non-Af Amer) Cancelled Glucose 115 H Cancelled Calcium 9.1 Cancelled 02/22/20 02/22/20 15:46 16:06 WBC RBC Hgb Hct MCV MCH MCHC RDW Plt Count Sodium Cancelled 139.0 Potassium Cancelled 4.3 Chloride Cancelled 109 H Carbon Dioxide Cancelled 24 Anion Gap Cancelled 6 BUN Cancelled 14 Creatinine Cancelled 1.40 H Est GFR ( Amer) Cancelled > 60 Est GFR (Non-Af Amer) Cancelled Glucose Cancelled 107 Calcium Cancelled 8.9 02/17/20 06:37 Blood Blood Culture - Final NO GROWTH IN 5 DAYS 02/17/20 06:15 Blood Blood Culture - Final NO GROWTH IN 5 DAYS 02/17/20 02/17/20 03:40 03:40 Creatine Kinase 52 L Troponin I < 0.012 Impressions: Head CT 02/17/20 03:41 IMPRESSION: 1. No acute intracranial abnormality. 2. Chronic maxillary, ethmoid and sphenoid sinus disease. An air-fluid level in the right maxillary sinus suggest superimposed acute changes. 3. Additional findings as above. EVIDENCE OF ACUTE STROKE: NO Shoulder X-Ray 02/20/20 00:00 IMPRESSION: NEGATIVE STUDY OF THE LEFT SHOULDER. NO RADIOGRAPHIC EVIDENCE OF ACUTE INJURY. Chest X-Ray 02/20/20 06:00 IMPRESSION: Unchanged radiographic appearance of the chest. Assessment and Plan - Diagnosis (1) Pneumonia Qualifiers: Pneumonia type: due to unspecified organism Laterality: right Lung location: upper lobe of lung Qualified Code(s): J18.9 - Pneumonia, unspecified organism Is this a current diagnosis for this admission?: Yes Plan: CXR shows Rt multifocal airspace disease. Blood cultures negative Trach aspirate isolated Pseudomonas aeruginosa and MRSA. Patient is provided supplemental oxygen as needed maintain saturations greater than 89%. Patient was empirically placed on Zosyn/Levaquin/vancomycin. Discontinue Zosyn: Received 5 days of therapy. Transition to p.o. Levaquin today; day #6 of 7. Transition to p.o. Bactrim: Day #6 of 14. As needed nebulizer treatments. Continue Robitussin as needed. Pulmonary toilet is encouraged with incentive spirometer, flutter valve, early ambulation. (2) MRSA pneumonia Is this a current diagnosis for this admission?: Yes Plan: As above. (3) Pneumonia due to Pseudomonas aeruginosa Is this a current diagnosis for this admission?: Yes Plan: As above. (4) Drug overdose, multiple drugs Qualifiers: Encounter type: subsequent encounter Injury intent: undetermined intent Qualified Code(s): T50.914D - Poisoning by multiple unspecified drugs, medicaments and biological substances, undetermined, subsequent encounter Is this a current diagnosis for this admission?: Yes Plan: [employer] spoke with mental health team. Continues on IVC status w/ sitter in place. Continue medications per their recommendations: Cogentin 1 mg IM daily; Haldol 5 mg IM every 12 hours; propranolol 5 mg p.o. twice daily; Thorazine 50 mg IM every 6 hours as needed. (5) Toxic metabolic encephalopathy Is this a current diagnosis for this admission?: Yes Plan: Resolved. (6) Atrial fibrillation with rapid ventricular response Is this a current diagnosis for this admission?: Yes Plan: Unable to determine type of atrial fibrillation. Patient presented with paroxysmal atrial fibrillation. Now in sinus rhythm. Given the clinical picture and positive cocaine on the drug screen this is most likely cocaine toxicity. Monitor on telemetry. (7) Hypothermia due to exposure Is this a current diagnosis for this admission?: Yes Plan: Resolved. (8) Endotracheally intubated Is this a current diagnosis for this admission?: Yes Plan: Successfully liberated from mechanical ventilation 02/18/20 Continue supplemental oxygen as needed to maintain saturations greater than 89%. Aggressive pulmonary toilet. Speech therapy consultation. (9) Marijuana abuse Is this a current diagnosis for this admission?: Yes Plan: Cessation to be encouraged. (10) Cocaine abuse Is this a current diagnosis for this admission?: Yes Plan: Avoid beta-blockers. Cessation encouraged. Mental health consulted. (11) Shoulder pain Qualifiers: Chronicity: acute Laterality: left Qualified Code(s): M25.512 - Pain in left shoulder Is this a current diagnosis for this admission?: Yes Plan: Imagining on arrival was negative for acute findings. Repeat 1 view is unremarkable. Now with edema; improved today Consider Orthopedic consultation. Tylenol and Toradol prn pain. PT ordered. (12) GWEN (acute kidney injury) Is this a current diagnosis for this admission?: Yes Plan: unclear etiology; it appears that patient has had intermittent elevated creatinine throughout this admission. Initially, likely prerenal secondary to overdose resulting in hypoxia and hypotension. Now may be related to vancomycin. Although, trough this morning was 18.7. CR 0.70-> 1.34-> 1.40 Vancomycin has been discontinued. Continue IV fluids. Follow-up chemistry. - Plan Summary Summary: Patient with mild GWEN today. Receiving IV fluids, encourage p.o. fluids. Pneumonia is significantly improved; now maintaining oxygen saturations on room air, afebrile, with downtrending leukocytosis. Transition to oral antibiotics. IVC has been rescinded. Patient will be medically stable for discharge once it is determined that his creatinine is not continuing to rise (? ATN r/t Vanc). Mental health services asks that they be notified if he is not discharged tomorrow; they will provide assistance in contacting the bus line to reschedule the patient's bus ticket. - Time Time Spent with patient: 35 or more minutes Medications reviewed and adjusted accordingly: Yes Anticipated Discharge Disposition: Home, Self Care Anticipated Discharge Timeframe: within 24 hours
[2020-02-23 05:39] LABS: HEMOGLOBIN 12.2 g/dL (13.5-17.0); MEAN CORPUSCULAR HEMOGLOBIN 32.1 pg (27.0-33.4); MEAN CORPUSCULAR HGB CONC 34.8 g/dL (32.0-36.0); MEAN CORPUSCULAR VOLUME 92 fl (80-97); PLATELET COUNT 243 10^3/uL (150-450); RED CELL DISTRIBUTION WIDTH 12.8 % (11.5-14.0); WHITE BLOOD COUNT 13.8 10^3/uL (4.0-10.5)
[2020-02-23 06:09] LABS: ANION GAP 9 (5-19); BLOOD UREA NITROGEN 13 mg/dL (7-20); CALCIUM 9.3 mg/dL (8.4-10.2); CARBON DIOXIDE 24 mmol/L (22-30); CHLORIDE 109 mmol/L (98-107); GLUCOSE 107 mg/dL (75-110)
[2020-02-23] MEDS: GUAIFENESIN SYRP 200 MG/10 ML UDC PO SCH ×4 (09:56→21:56)
[2020-02-23] MEDS: FAMOTIDINE INJ/PF 20 MG/2 ML SDV IV SCH ×2 (09:56→21:11)
[2020-02-23] MEDS: HALOPERIDOL 5 MG TABLET PO SCH ×2 (09:57→21:57)
[2020-02-23] MEDS: SULFAMETHOXAZOLE/TRIMETHOPRIM 800-160 MG TABLET PO SCH ×2 (09:57→17:17)
[2020-02-23] MEDS: BENZTROPINE MESYLATE 1 MG TABLET PO SCH (09:57)
[2020-02-23] MEDS: PROPRANOLOL HCL 10 MG TABLET PO SCH ×2 (09:57→21:57)
[2020-02-23] MEDS: ENOXAPARIN SODIUM INJ 40 MG/0.4 ML DISP.SYRIN SUBCUT SCH (09:57)
[2020-02-23] MEDS: LEVOFLOXACIN 750 MG TABLET PO SCH (12:12)
--- NOTE | 2020-02-23 16:35 | PDOC PROGRESS REPORT ---
Subjective Date:: 02/23/20 Subjective:: No adverse events overnight. No new complaints. Vital signs been stable. Ko lerner is still trending up a little bit, but he says he feels good. Reason For Visit: UNRESPONSIVE STATE HYPOTHERMIA CARDIAC DYSRHYTHMIA Physical Exam Vital Signs: Temp Pulse Resp BP Pulse Ox 97.7 F 66 16 119/77 99 02/23/20 11:55 02/23/20 11:55 02/23/20 11:55 02/23/20 11:55 02/23/20 11:55 Intake & Output 02/22/20 02/23/20 02/24/20 06:59 06:59 06:59 Intake Total 2940 4751 442 Output Total 2600 Balance 340 4751 442 Weight 111.7 kg 114.2 kg General appearance: PRESENT: no acute distress, cooperative, well-developed, well-nourished Respiratory exam: PRESENT: clear to auscultation randy, symmetrical, unlabored, other - Room air. ABSENT: rales, rhonchi, wheezes Cardiovascular exam: PRESENT: RRR. ABSENT: diastolic murmur, rubs, systolic murmur Pulses: PRESENT: normal dorsalis pedis pul Vascular exam: PRESENT: normal capillary refill Extremities exam: PRESENT: full ROM, tenderness - Left shoulder. ABSENT: calf tenderness, clubbing, joint swelling, pedal edema Musculoskeletal exam: PRESENT: ambulatory - Independently Neurological exam: PRESENT: alert, awake, oriented to person, oriented to place, oriented to time, oriented to situation Psychiatric exam: PRESENT: appropriate affect, normal mood. Skin exam: PRESENT: dry, intact, warm. Results Laboratory Results: 02/23/20 05:25 02/23/20 05:25 02/22/20 02/23/20 02/23/20 16:06 05:25 05:25 WBC 13.8 H RBC 3.80 L Hgb 12.2 L Hct 35.0 L MCV 92 MCH 32.1 MCHC 34.8 RDW 12.8 Plt Count 243 Sodium 139.0 141.8 Potassium 4.3 4.0 Chloride 109 H 109 H Carbon Dioxide 24 24 Anion Gap 6 9 BUN 14 13 Creatinine 1.40 H 1.49 H Est GFR ( Amer) > 60 > 60 Glucose 107 107 Calcium 8.9 9.3 02/17/20 02/17/20 03:40 03:40 Creatine Kinase 52 L Troponin I < 0.012 Impressions: Head CT 02/17/20 03:41 IMPRESSION: 1. No acute intracranial abnormality. 2. Chronic maxillary, ethmoid and sphenoid sinus disease. An air-fluid level in the right maxillary sinus suggest superimposed acute changes. 3. Additional findings as above. EVIDENCE OF ACUTE STROKE: NO Shoulder X-Ray 02/20/20 00:00 IMPRESSION: NEGATIVE STUDY OF THE LEFT SHOULDER. NO RADIOGRAPHIC EVIDENCE OF ACUTE INJURY. Chest X-Ray 02/20/20 06:00 IMPRESSION: Unchanged radiographic appearance of the chest. Assessment and Plan - Diagnosis (1) GWEN (acute kidney injury) Is this a current diagnosis for this admission?: Yes (2) Atrial fibrillation with rapid ventricular response Is this a current diagnosis for this admission?: Yes (3) Cocaine abuse Is this a current diagnosis for this admission?: Yes (4) Drug overdose, multiple drugs Qualifiers: Encounter type: subsequent encounter Injury intent: undetermined intent Qualified Code(s): T50.914D - Poisoning by multiple unspecified drugs, medicaments and biological substances, undetermined, subsequent encounter Is this a current diagnosis for this admission?: Yes (5) Endotracheally intubated Is this a current diagnosis for this admission?: Yes (6) Hypothermia due to exposure Is this a current diagnosis for this admission?: Yes (7) MRSA pneumonia Qualifiers: Laterality: unspecified laterality Lung location: unspecified part of lung Qualified Code(s): J15.212 - Pneumonia due to Methicillin resistant Staphylococcus aureus Is this a current diagnosis for this admission?: Yes (8) Marijuana abuse Is this a current diagnosis for this admission?: Yes (9) Pneumonia due to Pseudomonas aeruginosa Is this a current diagnosis for this admission?: Yes - Plan Summary Summary: Pneumonia is significantly improved; now maintaining oxygen saturations on room air, afebrile, with downtrending leukocytosis. Transition to oral antibiotics. IVC has been rescinded. Patient will be medically stable for discharge once it is determined that his creatinine is not continuing to rise (? ATN r/t Vanc). Mental health services asks that they be notified if he is not discharged tomorrow; they will provide assistance in contacting the bus line to reschedule the patient's bus ticket. His creatinine was still climbing slowly upward. He really wants to go home, but I convinced him it was probably in his best interest to stay so that we can make sure his kidney function does not deteriorate, especially in light of the fact that he will be taking Bactrim. Encouraged p.o. fluids and will repeat his metabolic panel in the morning. If his creatinine at least has plateaued, we can go ahead and send him home at that time. - Time Time Spent with patient: 15-24 minutes Anticipated Discharge Disposition: Home, Self Care Anticipated Discharge Timeframe: within 24 hours
[2020-02-23 21:20] VITALS: BP 119/51
[2020-02-24 06:38] LABS: ANION GAP 9 (5-19); BLOOD UREA NITROGEN 15 mg/dL (7-20); CALCIUM 9.3 mg/dL (8.4-10.2); CARBON DIOXIDE 25 mmol/L (22-30); CHLORIDE 106 mmol/L (98-107); GLUCOSE 95 mg/dL (75-110); POTASSIUM 4.1 mmol/L (3.6-5.0)
[2020-02-24] MEDS ORDERED: CLINDAMYCIN HCL 150 MG CAPSULE PO SCH (09:00)
[2020-02-24] MEDS: PROPRANOLOL HCL 10 MG TABLET PO SCH (09:01)
[2020-02-24] MEDS: BENZTROPINE MESYLATE 1 MG TABLET PO SCH (09:01)
[2020-02-24] MEDS: HALOPERIDOL 5 MG TABLET PO SCH (09:01)
[2020-02-24] MEDS: GUAIFENESIN SYRP 200 MG/10 ML UDC PO SCH (09:02)
[2020-02-24] MEDS: FAMOTIDINE INJ/PF 20 MG/2 ML SDV IV SCH (09:02)
[2020-02-24] MEDS: ENOXAPARIN SODIUM INJ 40 MG/0.4 ML DISP.SYRIN SUBCUT SCH (09:02)
--- NOTE | 2020-02-24 17:25 | Left Against Medical Advice ---
Against Medical Advice Admission Date/Time: 02/17/20 05:54 Primary Care Provider: Date of Patient Emigration: 02/24/20 - Diagnosis: (1) GWEN (acute kidney injury) Is this a current diagnosis for this admission?: Yes (2) Atrial fibrillation with rapid ventricular response Is this a current diagnosis for this admission?: Yes (3) Cocaine abuse Is this a current diagnosis for this admission?: Yes (4) Drug overdose, multiple drugs Is this a current diagnosis for this admission?: Yes (5) Endotracheally intubated Is this a current diagnosis for this admission?: Yes (6) Hypothermia due to exposure Is this a current diagnosis for this admission?: Yes (7) MRSA pneumonia Is this a current diagnosis for this admission?: Yes (8) Marijuana abuse Is this a current diagnosis for this admission?: Yes (9) Pneumonia due to Pseudomonas aeruginosa Is this a current diagnosis for this admission?: Yes - Summary: Summary: Please see Admission and Progress Notes as well. GUI HUTCHINS is a 34 M, who LEFT AGAINST MEDICAL ADVICE. The Patient was admitted on 02/17/20 05:54. He was initially intubated sent to the ICU. After some antibiotics and ventilatory support his vital signs improved and he was successfully extubated. He was found to have MRSA and Pseudomonas pneumonia. He has had adequate treatment for Pseudomonas pneumonia but has several days of treatment left for his MRSA pneumonia. He started to show some evidence of renal failure, and his creatinine has escalated over the last few days. Patient did not want to wait for his kidneys to improve and so he left AGAINST MEDICAL ADVICE.
== END 2020-02-24 09:24 | disposition left against medical advice (07) | DRG 917 ==
LOC: ER 03:21 → EH 05:54 → ICU 08:11 → 4S 02-20 12:37
PROVIDERS: ADMIT Internal Medicine Critical Care Medicine; ATTEND Family Medicine
PROC: 0BH17EZ Insertion of Endotracheal Airway into Trachea, Via Natural or Artificial Opening (ICD-10-PCS; principal; 2020-02-17)
PROC: 5A1945Z Respiratory Ventilation, 24-96 Consecutive Hours (ICD-10-PCS; 2020-02-17)
PROC: 05HQ33Z Insertion of Infusion Device into Left External Jugular Vein, Percutaneous Approach (ICD-10-PCS; 2020-02-17)
DX: T40.5X1A Poisoning by cocaine, accidental (unintentional), initial encounter (principal); J15.1 Pneumonia due to Pseudomonas; J15.29 Pneumonia due to other staphylococcus; G92 Toxic encephalopathy; N17.9 Acute kidney failure, unspecified; T40.7X1A Poisoning by cannabis (derivatives), accidental (unintentional), initial encounter; F14.10 Cocaine abuse, uncomplicated; F12.10 Cannabis abuse, uncomplicated; I48.91 Unspecified atrial fibrillation; Z59.0 Homelessness; I49.9 Cardiac arrhythmia, unspecified; T68.XXXA Hypothermia, initial encounter; X31.XXXA Exposure to excessive natural cold, initial encounter; M25.512 Pain in left shoulder; F17.210 Nicotine dependence, cigarettes, uncomplicated; Z53.29 Procedure and treatment not carried out because of patient's decision for other reasons; Z78.1 Physical restraint status
CPT/HCPCS: 36415; 36600; 51702; 70450; 71045; 80048; 80053; 80202; 80307; 81001; 82550; 82803; 82962; 83605; 83735; 84100; 84439; 84443; 84481; 84484; 85025; 85027; 85610; 87040; 87070; 87077; 87186; 87205; 93005; 93010; 94002; 94003; 94667; 96365; 96375; 99221; 99291; J0610; J0131; J0330; J0515; J1200; J1630; J1650; J1815; J1885; J1956; J2060; J2250; J2310; J2543; J3010; J3360; J3370; J3480; J3490; J7030; J7050; J7060; S0028